=== PATIENT | male | born 1960 | race Caucasian/White ===

== ENCOUNTER 2017-01-19 18:55 | Emergency (ER) | payer OTHER ==
[2017-01-19 19:01] VITALS: BP 143/96
[2017-01-19] MEDS ORDERED: Ketorolac INJ* 60 MG/2 ML VIAL IM ONE (19:18)
--- NOTE | 2017-01-19 19:28 | UC ---
Back Pain HPI - HPI Summary HPI Summary: YESTERDAY WENT RUNNING, THEN AFTERWARDS WAS MOWING LAWN AND GOT OUT TO LIFT SOMETHING FROM UNDER DECK. IMMEDIATELY HAD MUSCLE SPASM IN RIGHT LOWER BACK. TENS UNIT APPLIED TODAY SEEMS TO HELP. NO ABDOMINAL PAIN. NO LOSS OF FUNCTION OF BLADDER OR BOWELS. NO PAIN OR BLOOD WITH URINATION. - History of Current Complaint Chief Complaint: UCBackPain Stated Complaint: BACK PAIN Time Seen by Provider: 01/19/17 19:08 Hx Obtained From: Patient Onset/Duration: Sudden Onset, Lasting Days, Still Present Timing: Intermittent, Lasting Days Severity Initially: Severe Severity Currently: Mild Back Pain: Is Discrete @ - RIGHT LOW BACK Character: Dull, Aching, Spasmodic Aggravating: Movement, Lifting, Bending, Walking Alleviating: Rest, Position Associated Signs And Symptoms: Negative: Tingling, Abdominal Pain, Flank Pain, Bladder Incontinence, Bowel Incontinence, Weight Loss, Pain with Weight Bearing Related History: Similar Episode Dx As - 1 YR AGO - Risk Factors AAA Risk Factors: Negative TAD Risk Factors: Negative Cauda Equina Risk Factors: Negative Epidural Abscess Risk Factors: Negative - Allergies/Home Medications Allergies/Adverse Reactions: Allergies Allergy/AdvReac Type Severity Reaction Status Date / Time No Known Allergies Allergy Verified 01/19/17 19:04 Home Medications: Home Medications Hydrochlorothiazide TAB* [Hydrodiuril TAB*] 25 mg PO DAILY 01/19/17 [History Confirmed 01/19/17] Ibuprofen TAB* [Advil TAB*] 200 mg PO PRN 01/19/17 [History] PMH/Surg Hx/FS Hx/Imm Hx Previously Healthy: Yes - Surgical History Surgical History: Yes Surgery Procedure, Year, and Place: KIDNEY STONES X 3, [facility] 2004. RIGHT WRIST, [facility]. VASECTOMY, [facility] - Family History Known Family History: Positive: Unknown, Cardiac Disease, Hypertension Negative: Diabetes - Social History Occupation: Employed Full-time Lives: With Family Alcohol Use: None Substance Use Type: None Smoking Status (MU): Former Smoker Type: Cigarettes Amount Used/How Often: PACK A DAY X 6 YRS; 20+years ago Have You Smoked in the Last Year: No When Did the Patient Quit Smoking/Using Tobacco: 1983 - Immunization History Most Recent Influenza Vaccination: never Most Recent Tetanus Shot: within last 10 years Most Recent Pneumonia Vaccination: never Review of Systems Constitutional: Negative Skin: Negative Eyes: Negative ENT: Negative Respiratory: Negative Cardiovascular: Negative Gastrointestinal: Negative Genitourinary: Negative Motor: Negative Neurovascular: Negative Musculoskeletal: Arthralgia, Myalgia Neurological: Negative Psychological: Negative All Other Systems Reviewed And Are Negative: Yes Physical Exam Triage Information Reviewed: Yes Appearance: Well-Appearing, No Pain Distress, Well-Nourished Vital Signs: Initial Vital Signs Temp 98.4 F 01/19/17 18:56 Pulse 74 01/19/17 18:56 BP 143/96 01/19/17 18:56 Pulse Ox 96 01/19/17 18:56 Vital Signs Reviewed: Yes Eye Exam: Normal ENT Exam: Normal Dental Exam: Normal Neck exam: Normal Neck: Positive: Supple, Nontender Respiratory Exam: Normal Respiratory: Positive: Chest non-tender, Lungs clear, Normal breath sounds, No respiratory distress Cardiovascular Exam: Normal Cardiovascular: Positive: RRR, No Murmur, Pulses Normal Abdominal Exam: Normal Abdomen Description: Positive: Nontender, No Organomegaly. Negative: CVA Tenderness (R), CVA Tenderness (L) Musculoskeletal: Positive: Strength Intact, ROM Intact, No Edema, Other: - BILATERAL STRAIGHT LEG RAISE NEGATIVE. PAIN WITH PALPATION OF RIGHT GLUTEUS AND RIGHT LUMBAR PARASPINAL MUSCLES WITH PALPABLE SPASM Back Pain Course/Dx - Differential Dx/Diagnosis Differential Diagnosis/HQI/PQRI: Strain, Sprain Provider Diagnoses: LOW BACK PAIN/MUSCLE SPASM Discharge - Discharge Plan Condition: Stable Disposition: HOME Prescriptions: Metaxalone TAB* [Skelaxin TAB*] 800 mg PO TID PRN #15 tab PRN Reason: Spasms Patient Education Materials: Acute Low Back Pain (ED), Muscle Spasm (ED) Referrals: Rafael Vasques MD [Primary Care Provider] - Additional Instructions: PHYSICAL THERAPY REFERRAL: You have been prescribed physical therapy. Treatments may include stretching, exercise, application of heat or cold, and other modalities. After an injury, PT can reduce swelling and pain. In recovery, PT is used to restore mobility and strength. Your specific treatment goals are: Reduction of Swelling (EGS, US, ice as needed) ___X__ Pain Reduction (EGS, US, ice as needed) __X___ TENS Pack Fitting and Instruction Wound Hydrotherapy __X___ Preservation of Mobility ___X__ Judaism of Mobility ___X__ Strength Judaism __X___ Work or Sports Hardening This instruction sheet also serves as your PHYSICAL THERAPY REFERRAL! Please take it with you to the therapist, so he/she will be aware of your diagnosis and treatment plan. You may see the physical therapist of your choice for these treatments, but may wish to check with your insurance to be sure the provider you select is covered. It's important to see the doctor to whom you have been referred for follow up. Images Front/Back of Body, Lg ([place]): 1 - SPASM AND BACK PAIN
== END 2017-01-19 19:54 | disposition home or self-care (01) ==
LOC: UCEAST 18:55
DX: M54.5 Low back pain (principal); M62.830 Muscle spasm of back; X50.0XXA Overexertion from strenuous movement or load, initial encounter; Y93.H2 Activity, gardening and landscaping; Y92.007 Garden or yard of unspecified non-institutional (private) residence as the place of occurrence of the external cause
CPT/HCPCS: 96372; 99212; G0463; J1885

== ENCOUNTER 2017-10-25 13:38 | Emergency (ER) | payer OTHER ==
--- OUTSIDE RECORDS SUMMARY | 2017-10-25 13:47 | XMS REPORT ---
:1960 External Reference #:[id number] Author Organization [facility] Address [address] [place] [address] Phone [phone] Care Team Providers Name Role Phone HCP given Primary Care Physician Unavailable Payers Type Date Identification Numbers Payment Provider Subscriber Commercial Policy Number: [id number] [employer] [facility] Kristy Velazquez Group Name: [employer] [id number] PayID: [id number] [place] [address] Problems Date Description Provider Status Onset: 08/03/2005 Kidney stone Hong Francisco M.D. Active Onset: 09/28/2009 Premature ejaculation Hong Francisco M.D. 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 Uses sunscreen Allergies, Adverse Reactions, Alerts Date Description Reaction Status Severity Comments 06/07/2004 NKDA active Medications Medication Date Status Form Strength Qnty SIG Indications Ordering Provider Doxycycline 10/05 Active Capsules 100mg 2caps 2 caps at S40.262A Silcoff, Hyclate one time Robin Hall Aspirin Adult Low 08/04 Active Tablets 81mg 1 by mouth Unknown Dose DR every day Hydrochlorothiazid 08/04 Active Tablets 25mg take one I10 Unknown e tablet by mouth every morning for high blood pressure Atorvastatin 08/04 Active Tablets 20mg 30tab 1 tablets Sopchak, Calcium s by mouth Delroy, daily for D.O. prevention of heart attack and stroke. Amoxicillin/Clavul 05/14 Hx Tablets 875-125mg 20tab 1 tab po 461.8 Silcoff, anate s bid x 10 Jamie Hall M.D. 03/01 Diphenoxylate/Atro 01/30 Hx Tablets 2.5-0.025 24tab 1-2 tabs up 787.91 Layo mg s to 4x/day Jamie Hall for diarhea M.Mateo 05/14 Paroxetine HCL 11/23 Hx Tablets 20mg 60tab 1 /2 po qd 302.75 s Duoglas Francisco, 05/14 M.DMikala SMZ-TMP DS 05/21 Hx Tablets 800-160mg 14tab 1 tab po 788.1 s bid x 7day Jamie Hall M.D. 05/28 Fluoxetine HCL 05/27 Hx Tablets 20mg 60tab Take 2 302.75 polo s Tablets Rafael - Daily M.DMikala 11/23 Fluoxetine HCL 01/28 Hx Capsules 20mg 60cap 2 po qd 302.75 s Douglas Francisco, 05/27 M.D. Fluoxetine HCL 09/28 Hx Capsules 10mg 90cap 1 po qd 302.75 ty Francisco, 01/28 M.D. Omeprazole 11/07 Hx Capsules 20mg 30cap 1 po qd for 530.[address] crawford acid reflux Jamie Hall M.D. 12/07 Immunizations CPT Code Status Date Vaccine Lot # [id number] Given 09/24/2013 Adacel or Boostrix, TDaP [id number] Given 09/28/2009 Adacel or Boostrix, TDaP [id number] Given 07/07/2006 Td Immunization [id number] Vital Signs Date Vital Result Comment 10/05/2017 BP Systolic 114 mmHg BP Diastolic 82 mmHg Weight 182.00 lb w/shoes 08/13/2017 BP Systolic 102 mmHg BP Diastolic 72 mmHg Height 68.25 inches 5'8.25" Weight 177.00 lb BMI (Body Mass Index) 26.7 kg/m2 08/05/2017 BP Systolic 118 mmHg BP Diastolic 64 mmHg Height 68.25 inches 5'8.25" Weight 176.00 lb BMI (Body Mass Index) 26.6 kg/m2 03/14/2013 BP Systolic 110 mmHg BP Diastolic 82 mmHg Body Temperature 97.8 F Weight 191.00 lb 05/14/2012 BP Systolic 124 mmHg BP Diastolic 94 mmHg Body Temperature 97.5 F Weight 195.00 lb w/shoes-xtra clothing 02/05/2012 BP Systolic 104 mmHg BP Diastolic 59 mmHg Heart Rate 61 /min Weight 187.00 lb Last Menstrual Period 0 01/31/2012 BP Systolic 111 mmHg BP Diastolic 73 mmHg Heart Rate 58 /min Body Temperature 97.8 F Height 69 inches 5'9" Weight 185.00 lb BMI (Body Mass Index) 27.3 kg/m2 05/26/2011 BP Systolic 128 mmHg BP Diastolic 80 mmHg Heart Rate 70 /min 05/21/2011 BP Systolic 132 mmHg BP Diastolic 84 mmHg Heart Rate 674 /min Body Temperature 97.8 F Height 69 inches 5'9" Weight 184.00 lb BMI (Body Mass Index) 27.2 kg/m2 Last Menstrual Period 0 01/14/2011 BP Systolic 114 mmHg BP Diastolic 70 mmHg 01/08/2011 BP Systolic 118 mmHg BP Diastolic 84 mmHg 01/02/2011 BP Systolic 112 mmHg BP Diastolic 80 mmHg Weight 182.00 lb 11/25/2010 BP Systolic 120 mmHg BP Diastolic 82 mmHg Height 69 inches 5'9" Weight 180.00 lb BMI (Body Mass Index) 26.6 kg/m2 Last Menstrual Period 0 05/27/2010 Heart Rate 80 /min wgt at home 166 01/28/2010 BP Systolic 116 mmHg BP Diastolic 84 mmHg Heart Rate 70 /min Weight 166.00 lb 09/28/2009 BP Systolic 102 mmHg BP Diastolic 78 mmHg Heart Rate 70 /min Respiratory Rate 16 /min Height 68.25 inches 5'8.25" Weight 173.00 lb BMI (Body Mass Index) 26.1 kg/m2 Last Menstrual Period 0 03/09/2009 BP Systolic 120 mmHg BP Diastolic 86 mmHg Weight 193.00 lb 11/07/2008 BP Systolic 118 mmHg BP Diastolic 86 mmHg Height 69 inches 5'9" Weight 190.00 lb BMI (Body Mass Index) 28.1 kg/m2 04/17/2008 BP Systolic 122 mmHg BP Diastolic 94 mmHg BP Systolic Recheck 122 mmHg BP Diastolic Recheck 92 mmHg Heart Rate 70 /min Respiratory Rate 16 /min Height 69 inches 5'9" Weight 188.00 lb BMI (Body Mass Index) 27.8 kg/m2 11/26/2007 BP Systolic 110 mmHg BP Diastolic 86 mmHg Height 69 inches 5'9" 07/07/2006 BP Systolic 124 mmHg BP Diastolic 84 mmHg Body Temperature 98.1 F Height 69 inches 5'9" Weight 191.00 lb BMI (Body Mass Index) 28.2 kg/m2 06/07/2004 BP Systolic 120 mmHg BP Diastolic 80 mmHg Height 69 inches 5'9" Weight 198.00 lb BMI (Body Mass Index) 29.2 kg/m2 Results Test Date Test Result H/L Range Note Comp Metabolic Panel 08/12/2017 Sodium 138 mmol/L 133-145 Potassium 4.3 mmol/L 3.5-5.0 Chloride 103 mmol/L 101-111 Co2 Carbon Dioxide 31 mmol/L 22-32 Anion Gap 4 mmol/L 2-11 Glucose 86 mg/dL 70-100 Blood Urea Nitrogen 22 mg/dL 6-24 Creatinine 0.91 mg/dL 0.67-1.17 BUN/Creatinine Ratio 24.2 High 8-20 Calcium 9.4 mg/dL 8.6-10.3 Total Protein 6.5 g/dL 6.4-8.9 Albumin 4.1 g/dL 3.2-5.2 Globulin 2.4 g/dL 2-4 Albumin/Globulin Ratio 1.7 1-3 Total Bilirubin 0.60 mg/dL 0.2-1.0 Alkaline Phosphatase 36 U/L 34-104 Alt 16 U/L 7-52 Ast 17 U/L 13-39 Egfr Non- 85.9 >60 Egfr 110.4 >60 1 Lipid Profile (Trig/Chol/HDL) 08/12/2017 Triglycerides 49 mg/dL 2 Cholesterol 184 mg/dL 3 HDL Cholesterol 52.6 mg/dL 4 LDL Cholesterol 122 mg/dL 5 Laboratory test finding 08/12/2017 Creatine Kinase(CK) 137 U/L 10-223 6 Culture Urine Inhouse 08/05/2017 Colonies negative Urine Micro Inhouse 08/05/2017 Ua WBC 2-3 Ua Specific Wilburn 1.020 Ua PH 6.0 Laboratory test finding 10/03/2016 Potassium 3.9 mmol/L 3.5-5.0 Basic Metabolic Panel 08/25/2016 Sodium 140 mmol/L 133-145 Potassium 4.4 mmol/L 3.5-5.0 Chloride 107 mmol/L 101-111 Co2 Carbon Dioxide 30 mmol/L 22-32 Anion Gap 3 mmol/L 2-11 Glucose 97 mg/dL 70-100 Blood Urea Nitrogen 16 mg/dL 6-24 Creatinine 0.91 mg/dL 0.67-1.17 BUN/Creatinine Ratio 17.6 8-20 Calcium 9.5 mg/dL 8.6-10.3 Egfr Non- 85.9 >60 Egfr 110.4 >60 7 Laboratory test finding 08/25/2016 PSA Screening 2.425 ng/mL 0-4.0 8 Laboratory test finding 06/18/2016 B-Type Natriuretic Peptide 14 pg/mL 9 BNP Lactic Acid 0.7 mmol/L 0.5-2.0 10 CBC Auto Diff 06/18/2016 White Blood Count 5.7 10^3/uL 3.5-10.8 Red Blood Count 4.74 10^6/uL 4.0-5.4 Hemoglobin 14.8 g/dL 14.0-18.0 Hematocrit 44 % 42-52 Mean Corpuscular Volume 93 fL 80-94 Mean Corpuscular Hemoglobin 31 pg 27-31 Mean Corpuscular HGB Conc 34 g/dL 31-36 Red Cell Distribution Width 14 % 10.5-15 Platelet Count 176 10^3/uL 150-450 Mean Platelet Volume 9 um3 7.4-10.4 Abs Neutrophils 3.3 10^3/uL 1.5-7.7 Abs Lymphocytes 1.9 10^3/uL 1.0-4.8 Abs Monocytes 0.4 10^3/uL 0-0.8 Abs Eosinophils 0.1 10^3/uL 0-0.6 Abs Basophils 0 10^3/uL 0-0.2 Abs Nucleated RBC 0 10^3/uL Granulocyte % 57.4 % 38-83 Lymphocyte % 33.3 % 25-47 Monocyte % 6.5 % 1-9 Eosinophil % 2.1 % 0-6 Basophil % 0.7 % 0-2 Nucleated Red Blood Cells % 0 Comp Metabolic Panel 06/18/2016 Sodium 138 mmol/L 133-145 Potassium 3.7 mmol/L 3.5-5.0 Chloride 105 mmol/L 101-111 Co2 Carbon Dioxide 29 mmol/L 22-32 Anion Gap 4 mmol/L 2-11 Glucose 91 mg/dL 70-100 Blood Urea Nitrogen 19 mg/dL 6-24 Creatinine 1.00 mg/dL 0.67-1.17 BUN/Creatinine Ratio 19.0 8-20 Calcium 8.8 mg/dL 8.6-10.3 Total Protein 6.6 g/dL 6.4-8.9 Albumin 4.1 g/dL 3.2-5.2 Globulin 2.5 g/dL 2-4 Albumin/Globulin Ratio 1.6 1-3 Total Bilirubin 0.50 mg/dL 0.2-1.0 Alkaline Phosphatase 38 U/L 34-104 Alt 29 U/L 7-52 Ast 23 U/L 13-39 Egfr Non- 77.3 >60 Egfr 99.4 >60 11 Laboratory test finding 06/18/2016 Troponin-I (TnI) 0.00 ng/mL <0.04 12 TSH (Thyroid Stim Horm) 1.42 mcIU/mL 0.34-5.60 Inr/Protime 06/18/2016 Inr 0.96 0.89-1.11 Comp Metabolic Panel 12/08/2015 Sodium 137 mmol/L 133-145 Potassium 3.9 mmol/L 3.5-5.0 Chloride 105 mmol/L 101-111 Co2 Carbon Dioxide 26 mmol/L 22-32 Anion Gap 6 mmol/L 2-11 Glucose 97 mg/dL 70-100 Blood Urea Nitrogen 27 mg/dL High 6-24 Creatinine 0.90 mg/dL 0.67-1.17 BUN/Creatinine Ratio 30.0 High 8-20 Calcium 8.7 mg/dL 8.6-10.3 Total Protein 6.2 g/dL Low 6.4-8.9 Albumin 3.9 g/dL 3.2-5.2 Globulin 2.3 g/dL 2-4 Albumin/Globulin Ratio 1.7 1-3 Total Bilirubin 0.40 mg/dL 0.2-1.0 Alkaline Phosphatase 58 U/L 34-104 Alt 34 U/L 7-52 Ast 28 U/L 13-39 Egfr Non- 87.3 >60 Egfr 112.3 >60 13 CBC Auto Diff 12/08/2015 White Blood Count 5.9 10^3/uL 3.5-10.8 Red Blood Count 4.39 10^6/uL 4.0-5.4 Hemoglobin 13.5 g/dL Low 14.0-18.0 Hematocrit 40 % Low 42-52 Mean Corpuscular Volume 91 fL 80-94 Mean Corpuscular Hemoglobin 31 pg 27-31 Mean Corpuscular HGB Conc 34 g/dL 31-36 Red Cell Distribution Width 13 % 10.5-15 Platelet Count 174 10^3/uL 150-450 Mean Platelet Volume 9 um3 7.4-10.4 Abs Neutrophils 3.2 10^3/uL 1.5-7.7 Abs Lymphocytes 2.0 10^3/uL 1.0-4.8 Abs Monocytes 0.4 10^3/uL 0-0.8 Abs Eosinophils 0.2 10^3/uL 0-0.6 Abs Basophils 0.1 10^3/uL 0-0.2 Abs Nucleated RBC 0 10^3/uL Granulocyte % 55.2 % 38-83 Lymphocyte % 34.0 % 25-47 Monocyte % 7.2 % 1-9 Eosinophil % 2.7 % 0-6 Basophil % 0.9 % 0-2 Nucleated Red Blood Cells % 0 CBC Auto Diff 08/23/2015 White Blood Count 4.8 10^3/uL 3.5-10.8 Red Blood Count 4.34 10^6/uL 4.0-5.4 Hemoglobin 13.4 g/dL Low 14.0-18.0 Hematocrit 41 % Low 42-52 Mean Corpuscular Volume 94 fL 80-94 Mean Corpuscular Hemoglobin 31 pg 27-31 Mean Corpuscular HGB Conc 33 g/dL 31-36 Red Cell Distribution Width 14 % 10.5-15 Platelet Count 167 10^3/uL 150-450 Mean Platelet Volume 9 um3 7.4-10.4 Abs Neutrophils 3.0 10^3/uL 1.5-7.7 Abs Lymphocytes 1.4 10^3/uL 1.0-4.8 Abs Monocytes 0.3 10^3/uL 0-0.8 Abs Eosinophils 0.1 10^3/uL 0-0.6 Abs Basophils 0 10^3/uL 0-0.2 Abs Nucleated RBC 0 10^3/uL Granulocyte % 61.8 % 38-83 Lymphocyte % 28.8 % 25-47 Monocyte % 6.6 % 1-9 Eosinophil % 2.1 % 0-6 Basophil % 0.7 % 0-2 Nucleated Red Blood Cells % 0 Comp Metabolic Panel 08/23/2015 Sodium 139 mmol/L 133-145 Potassium 3.8 mmol/L 3.5-5.0 Chloride 106 mmol/L 101-111 Co2 Carbon Dioxide 28 mmol/L 22-32 Anion Gap 5 mmol/L 2-11 Glucose 97 mg/dL 70-100 Blood Urea Nitrogen 16 mg/dL 6-24 Creatinine 0.84 mg/dL 0.67-1.17 BUN/Creatinine Ratio 19.0 8-20 Calcium 8.8 mg/dL 8.6-10.3 Total Protein 5.9 g/dL Low 6.4-8.9 Albumin 3.9 g/dL 3.2-5.2 Globulin 2.0 g/dL 2-4 Albumin/Globulin Ratio 2.0 1-3 Total Bilirubin 0.50 mg/dL 0.2-1.0 Alkaline Phosphatase 50 U/L 34-104 Alt 35 U/L 7-52 Ast 23 U/L 13-39 Egfr Non- 94.9 >60 Egfr 122.0 >60 14 Laboratory test finding 08/23/2015 Troponin-I (TnI) 0.01 ng/mL <0.03 15 Laboratory test finding 05/31/2015 Troponin-I (TnI) 0.00 ng/mL <0.03 16 CBC Auto Diff 05/31/2015 White Blood Count 5.9 10^3/uL 3.5-10.8 Red Blood Count 4.84 10^6/uL 4.0-5.4 Hemoglobin 15.1 g/dL 14.0-18.0 Hematocrit 45 % 42-52 Mean Corpuscular Volume 92 fL 80-94 Mean Corpuscular Hemoglobin 31 pg 27-31 Mean Corpuscular HGB Conc 34 g/dL 31-36 Red Cell Distribution Width 13 % 10.5-15 Platelet Count 217 10^3/uL 150-450 Mean Platelet Volume 8 um3 7.4-10.4 Abs Neutrophils 3.8 10^3/uL 1.5-7.7 Abs Lymphocytes 1.5 10^3/uL 1.0-4.8 Abs Monocytes 0.4 10^3/uL 0-0.8 Abs Eosinophils 0.1 10^3/uL 0-0.6 Abs Basophils 0.1 10^3/uL 0-0.2 Abs Nucleated RBC 0 10^3/uL Granulocyte % 64.7 % 38-83 Lymphocyte % 24.8 % Low 25-47 Monocyte % 7.3 % 1-9 Eosinophil % 2.3 % 0-6 Basophil % 0.9 % 0-2 Nucleated Red Blood Cells % 0 Laboratory test finding 05/31/2015 Lactic Acid 1.0 mmol/L 0.5-2.2 Troponin-I (TnI) 0.00 ng/mL <0.03 17 Comp Metabolic Panel 05/31/2015 Sodium 143 mmol/L 133-145 Potassium 3.8 mmol/L 3.5-5.0 Chloride 108 mmol/L 101-111 Co2 Carbon Dioxide 27 mmol/L 22-32 Anion Gap 8 mmol/L 2-11 Glucose 85 mg/dL 70-100 Blood Urea Nitrogen 18 mg/dL 6-24 Creatinine 0.99 mg/dL 0.67-1.17 BUN/Creatinine Ratio 18.2 8-20 Calcium 9.5 mg/dL 8.6-10.3 Total Protein 7.1 g/dL 6.4-8.9 Albumin 4.3 g/dL 3.2-5.2 Globulin 2.8 g/dL 2-4 Albumin/Globulin Ratio 1.5 1-3 Total Bilirubin 0.50 mg/dL 0.2-1.0 Alkaline Phosphatase 56 U/L 34-104 Alt 29 U/L 7-52 Ast 22 U/L 13-39 Egfr Non- 78.5 >60 Egfr 100.9 >60 18 Laboratory test finding 05/11/2015 Troponin-I (TnI) 1.31 ng/mL High < 0.03 19 Lactic Acid 0.7 mmol/L 0.5-2.2 20 Comp Metabolic Panel 05/11/2015 Sodium 136 mmol/L 133-145 Potassium 3.9 mmol/L 3.5-5.0 Chloride 102 mmol/L 101-111 Co2 Carbon Dioxide 28 mmol/L 22-32 Anion Gap 6 mmol/L 2-11 Glucose 96 mg/dL 70-100 Blood Urea Nitrogen 17 mg/dL 6-24 Creatinine 0.90 mg/dL 0.67-1.17 BUN/Creatinine Ratio 18.9 8-20 Calcium 9.4 mg/dL 8.6-10.3 Total Protein 6.3 g/dL Low 6.4-8.9 Albumin 4.1 g/dL 3.2-5.2 Globulin 2.2 g/dL 2-4 Albumin/Globulin Ratio 1.9 1-3 Total Bilirubin 0.60 mg/dL 0.2-1.0 Alkaline Phosphatase 36 U/L 34-104 Alt 20 U/L 7-52 Ast 35 U/L 13-39 Egfr Non- 87.6 >60 Egfr 112.7 >60 21 CBC Auto Diff 05/11/2015 White Blood Count 5.9 10^3/uL 4.8-10.8 Red Blood Count 4.66 10^6/uL 4.0-5.4 Hemoglobin 14.3 g/dL 14.0-18.0 Hematocrit 44 % 42-52 Mean Corpuscular Volume 94 fL 80-94 Mean Corpuscular Hemoglobin 31 pg 27-31 Mean Corpuscular HGB Conc 33 g/dL 31-36 Red Cell Distribution Width 13 % 10.5-15 Platelet Count 196 10^3/uL 150-450 Mean Platelet Volume 10 um3 7.4-10.4 Abs Neutrophils 3.9 10^3/uL 1.5-7.7 Abs Lymphocytes 1.4 10^3/uL 1.0-4.8 Abs Monocytes 0.4 10^3/uL 0-0.8 Abs Eosinophils 0.1 10^3/uL 0-0.6 Abs Basophils 0 10^3/uL 0-0.2 Abs Nucleated RBC 0.01 10^3/uL Granulocyte % 66.9 % 38-83 Lymphocyte % 24.2 % Low 25-47 Monocyte % 6.7 % 1-9 Eosinophil % 1.5 % 0-6 Basophil % 0.7 % 0-2 Nucleated Red Blood Cells % 0.1 Laboratory test finding 05/11/2015 Troponin-I (TnI) 2.73 ng/mL High < 0.03 22 Laboratory test finding 05/07/2015 Troponin-I (TnI) 0.02 ng/mL <0.03 23 CBC Auto Diff 05/07/2015 White Blood Count 5.5 10^3/uL 4.8-10.8 Red Blood Count 4.43 10^6/uL 4.0-5.4 Hemoglobin 13.8 g/dL Low 14.0-18.0 Hematocrit 42 % 42-52 Mean Corpuscular Volume 95 fL High 80-94 Mean Corpuscular Hemoglobin 31 pg 27-31 Mean Corpuscular HGB Conc 33 g/dL 31-36 Red Cell Distribution Width 13 % 10.5-15 Platelet Count 165 10^3/uL 150-450 Mean Platelet Volume 9 um3 7.4-10.4 Abs Neutrophils 3.3 10^3/uL 1.5-7.7 Abs Lymphocytes 1.7 10^3/uL 1.0-4.8 Abs Monocytes 0.4 10^3/uL 0-0.8 Abs Eosinophils 0.1 10^3/uL 0-0.6 Abs Basophils 0 10^3/uL 0-0.2 Abs Nucleated RBC 0.01 10^3/uL Granulocyte % 59.0 % 38-83 Lymphocyte % 31.4 % 25-47 Monocyte % 6.4 % 1-9 Eosinophil % 2.6 % 0-6 Basophil % 0.6 % 0-2 Nucleated Red Blood Cells % 0.1 Comp Metabolic Panel 05/07/2015 Sodium 139 mmol/L 133-145 Potassium 3.8 mmol/L 3.5-5.0 Chloride 105 mmol/L 101-111 Co2 Carbon Dioxide 27 mmol/L 22-32 Anion Gap 7 mmol/L 2-11 Glucose 81 mg/dL 70-100 Blood Urea Nitrogen 25 mg/dL High 6-24 Creatinine 1.02 mg/dL 0.67-1.17 BUN/Creatinine Ratio 24.5 High 8-20 Calcium 9.0 mg/dL 8.6-10.3 Total Protein 6.3 g/dL Low 6.4-8.9 Albumin 3.9 g/dL 3.2-5.2 Globulin 2.4 g/dL 2-4 Albumin/Globulin Ratio 1.6 1-3 Total Bilirubin 0.40 mg/dL 0.2-1.0 Alkaline Phosphatase 50 U/L 34-104 Alt 21 U/L 7-52 Ast 21 U/L 13-39 Egfr Non- 75.8 >60 Egfr 97.5 >60 24 Laboratory test finding 05/07/2015 Lipase 28 U/L 11.0-82.0 Creatine Kinase(CK) 182 U/L 10-223 Troponin-I (TnI) 0.01 ng/mL <0.03 25 CKMB 05/07/2015 CKMB ng/mL 3.8 ng/mL 0.6-6.3 Laboratory test finding 05/07/2015 B-Type Natriuretic Peptide 21 pg/mL 26 BNP Basic Metabolic Panel 11/20/2014 Sodium 138 mmol/L 133-145 Potassium 4.2 mmol/L 3.5-5.0 Chloride 105 mmol/L 101-111 Co2 Carbon Dioxide 31 mmol/L 22-32 Anion Gap 2 mmol/L 2-11 Glucose 98 mg/dL 70-100 Blood Urea Nitrogen 15 mg/dL 6-24 Creatinine 0.97 mg/dL 0.67-1.17 BUN/Creatinine Ratio 15.5 8-20 Calcium 9.3 mg/dL 8.6-10.3 Egfr Non- 80.4 >60 Egfr 103.3 >60 27 Laboratory test finding 11/20/2014 PSA Diagnostic 1.730 ng/mL 0-4.0 28 Basic Metabolic Panel 07/29/2013 Sodium 138 mmol/L 133-145 Potassium 3.8 mmol/L 3.5-5.0 Chloride 101 mmol/L 101-111 Co2 Carbon Dioxide 30.0 mmol/L 22-32 Anion Gap 7.0 mmol/L 2-11 Glucose 99 mg/dL 70-100 Blood Urea Nitrogen 12 mg/dL 6-24 Creatinine 1.00 mg/dL 0.50-1.40 BUN/Creatinine Ratio 12.0 8-20 Calcium 9.1 mg/dL 8.1-9.9 Egfr Non- 78.2 >60 Egfr 100.5 >60 29 Laboratory test finding 07/29/2013 PSA Diagnostic 1.294 ng/mL 0-4.0 30 Culture Urine Inhouse 03/14/2013 Colonies no growth Urine Micro Inhouse 03/14/2013 Ua WBC - Ua RBC - Ua Casts - Ua Epi - Ua Other - Ua Glucose - Ua Bilirubin - Ua Ketones - Ua Specific Wilburn 1.010 Ua Blood - Ua PH 6.5 Ua Protein - Ua Urobilinogen - Ua Nitrite - Ua Leukocytes - Laboratory test finding 02/02/2012 Erythrocyte Sed Rate 9 MM/HR 0-20 31 Comp Metabolic Panel 02/02/2012 Sodium 139 mmol/L 135-145 31 Potassium 4.3 mmol/L 3.5-5.0 31 Chloride 105 mmol/L 101-111 31 Co2 (Carbon Dioxide) 29.0 mmol/L 22-32 31 Anion Gap 5.0 mmol/L 2-11 31, 32 Glucose 74 mg/dL 70-100 31 BUN 16 mg/dL 6-24 31 Creatinine 0.9 mg/dL 0.50-1.40 31 One Over Creatinine 1.11 31 BUN/Creatinine Ratio 17.8 8-20 31 Calcium 9.0 mg/dL 8.1-9.9 31 Total Protein 6.5 GM/DL 6.2-8.1 31 Albumin 3.8 GM/DL 3.6-5.4 31 Globulin 2.7 GM/DL 2-4 31 Albumin/Globulin Ratio 1.4 1-3 31 Bilirubin Total 0.7 mg/dL 0.4-1.5 31, 33 Alkaline Phosphatase 56 U/L 39-117 31 Alt (SGPT) 25 U/L 17-63 31 Ast (Sgot) 20 U/L 12-42 31 eGFR Non- 88.6 > 60 31 eGFR 114.0 > 60 31, 34 CBC Auto Diff 02/02/2012 White Blood Count 4.2 CUMM Low 4.8-10.8 31 Red Cell Count 4.37 CUMM Low 4.6-6.2 31 Hemoglobin 14.3 g/dL 14.0-18.0 31 Hematocrit 41 % Low 42-52 31 Mean Corpuscular Volume 93 um3 80-94 31 Mean Corpuscular Hemoglob 33 pg High 27-31 31 Mean Corpuscular HGB Cone 35 g/dL 32-36 31 Redcell Distribution WDTH 13 % 10.5-15 31 Platelet Count 199 CUMM 150-450 31 Mean Platelet Volume 8.8 um3 7.4-10.4 31 Gran % 49.5 % 38-83 31 Lymph % 37.0 % 20-45 31 Mononuclear % 10.1 % High 1-9 31 Eosinophil % 2.8 % 0-6 31 Basophil % 0.6 % 0-2 31 Abs Lymphs 1.6 1.0-4.8 31 Abs Mononuclear 0.4 0-0.8 31 Absolute Neutrophil Count 2.1 1.5-7.7 31 Abs Eosinophils 0.1 0-0.6 31 Abs Basophils 0 0-0.2 31 Laboratory test 02/02/2012 Stool Culture 31, 35 finding <SEE NOTE> Stool For Blood 02/02/2012 Stool For Blood NEGATIVE Negative 31 Stool Color BROWN 31 Stool Form NONFORMED 31 Stool Consistency SOFT 31 Urine Micro Inhouse 05/21/2011 Ua WBC 4-6 Ua RBC 0-3 Ua Casts - Ua Epi - Ua Other - Ua Glucose - Ua Bilirubin - Ua Ketones - Ua Specific Wilburn 1.015 Ua Blood lrg Ua PH 6.0 Ua Protein - Ua Urobilinogen - Ua Nitrite - Ua Leukocytes tr Urinalysis W/Microscopic 03/01/2011 Ua Color YELLOW Yellow Appearance-Urine CLEAR Clear Specific Wilburn-Ur 1.022 1.010-1.030 Esterase-Urine NEGATIVE Negative Nitrite NEGATIVE Negative Gxetvzdkehii-Th-TOC NEGATIVE Negative Protein-Urine NEGATIVE Negative PH-Urine 6.0 5-9 Blood-Urine 3+ Negative Ketones-Urine NEGATIVE Negative Bilirubin-Ur NEGATIVE Negative Glucose-Urine NEGATIVE Negative RBC-Urine 80-100 0-2 Epith Cells-Ur FEW None Urine Culture & 03/01/2011 Urine Culture NG 36, 37 Sensitivi Sensitivi Basic Metabolic Panel 03/01/2011 Sodium 133 mmol/L Low 135-145 Potassium 3.8 mmol/L 3.5-5.0 Chloride 100 mmol/L Low 101-111 Co2 (Carbon Dioxide) 28.0 mmol/L 22-32 Anion Gap 5.0 mmol/L 2-11 38 Glucose 94 mg/dL 70-100 BUN 19 mg/dL 6-24 Creatinine 0.9 mg/dL 0.50-1.40 One Over Creatinine 1.11 BUN/Creatinine Ratio 21.1 High 8-20 Calcium 8.8 mg/dL 8.1-9.9 eGFR Non- 89.0 > 60 eGFR 114.4 > 60 39 CBC Auto Diff 03/01/2011 White Blood Count 6.2 CUMM 4.8-10.8 Red Cell Count 4.13 CUMM Low 4.6-6.2 Hemoglobin 13.6 g/dL Low 14.0-18.0 Hematocrit 39 % Low 42-52 Mean Corpuscular Volume 93 um3 80-94 Mean Corpuscular Hemoglob 33 pg High 27-31 Mean Corpuscular HGB Cone 35 g/dL 32-36 Redcell Distribution WDTH 12 % 10.5-15 Platelet Count 198 CUMM 150-450 Mean Platelet Volume 8.6 um3 7.4-10.4 Gran % 49.1 % 38-83 Lymph % 34.4 % 25-47 Mononuclear % 9.4 % High 1-9 Eosinophil % 6.1 % High 0-6 Basophil % 1.0 % 0-2 Abs Lymphs 2.1 1.0-4.8 Abs Mononuclear 0.6 0-0.8 Absolute Neutrophil Count 3.0 1.5-7.7 Abs Eosinophils 0.4 0-0.6 Abs Basophils 0.1 0-0.2 Comp Metabolic Panel 01/13/2011 Sodium 138 mmol/L 135-145 Potassium 4.5 mmol/L 3.5-5.0 Chloride 103 mmol/L 101-111 Co2 (Carbon Dioxide) 30.0 mmol/L 22-32 Anion Gap 5.0 mmol/L 2-11 40 Glucose 94 mg/dL 70-100 BUN 13 mg/dL 6-24 Creatinine 0.80 mg/dL 0.50-1.40 One Over Creatinine 1.20 BUN/Creatinine Ratio 16.3 8-20 Calcium 8.9 mg/dL 8.1-9.9 Total Protein 6.3 GM/DL 6.2-8.1 Albumin 3.8 GM/DL 3.6-5.4 Globulin 2.5 GM/DL 2-4 Albumin/Globulin Ratio 1.5 1-3 Bilirubin Total 0.7 mg/dL 0.4-1.5 41 Alkaline Phosphatase 43 U/L 39-117 Alt (SGPT) 20 U/L 17-63 Ast (Sgot) 22 U/L 12-42 eGFR Non- 101.9 > 60 eGFR 131.1 > 60 42 CBC Auto Diff 01/13/2011 White Blood Count 5.1 CUMM 4.8-10.8 Red Cell Count 4.10 CUMM Low 4.6-6.2 Hemoglobin 13.2 g/dL Low 14.0-18.0 Hematocrit 39 % Low 42-52 Mean Corpuscular Volume 96 um3 High 80-94 Mean Corpuscular Hemoglob 32 pg High 27-31 Mean Corpuscular HGB Cone 34 g/dL 32-36 Redcell Distribution WDTH 13 % 10.5-15 Platelet Count 214 CUMM 150-450 Mean Platelet Volume 8.4 um3 7.4-10.4 Gran % 60.4 % 38-83 Lymph % 28.6 % 25-47 Mononuclear % 7.0 % 1-9 Eosinophil % 3.2 % 0-6 Basophil % 0.8 % 0-2 Abs Lymphs 1.5 1.0-4.8 Abs Mononuclear 0.4 0-0.8 Absolute Neutrophil Count 3.1 1.5-7.7 Abs Eosinophils 0.2 0-0.6 Abs Basophils 0 0-0.2 Urine Micro Inhouse 01/02/2011 Ua WBC - Ua RBC - Ua Casts - Ua Epi - Ua Other - Ua Glucose - Ua Bilirubin - Ua Ketones - Ua Specific Wilburn 1.010 Ua Blood tr Ua PH 6.0 Ua Protein - Ua Urobilinogen - Ua Nitrite - Ua Leukocytes 1+ Laboratory test finding 11/25/2010 Hemoglobin 16.0 CBC With Electronic Diff 05/03/2010 White Blood Count 4.6 CUMM Low 4.8- 10.8 Red Cell Count 4.58 CUMM Low 4.6-6.2 Hemoglobin 14.8 g/dL 14.0-18.0 Hematocrit 42 % 42-52 Mean Corpuscular Volume 92 um3 80-94 Mean Corpuscular Hemoglob 32 pg High 27-31 Mean Corpuscular HGB Cone 35 g/dL 32-36 Redcell Distribution WDTH 13 % 10.5-15 Platelet Count 219 CUMM 150-450 Mean Platelet Volume 7.3 um3 Low 7.4-10.4 Gran % 58.3 % 38-83 Lymph % 31.0 % 25-47 Mononuclear % 7.0 % 1-9 Eosinophil % 2.9 % 0-6 Basophil % 0.8 % 0-2 Abs Lymphs 1.4 1.0-4.8 Abs Mononuclear 0.3 0-0.8 Absolute Neutrophil Count 2.7 1.5-7.7 Abs Eosinophils 0.1 0-0.6 Abs Basophils 0 0-0.2 Comp Metabolic Panel 05/03/2010 Sodium 138 mmol/L 135-145 Potassium 4.1 mmol/L 3.5-5.0 Chloride 102 mmol/L 101-111 Co2 (Carbon Dioxide) 31.0 mmol/L 22-32 Anion Gap 5.0 mmol/L 2-11 43 Glucose 96 mg/dL 70-100 44 BUN 14 mg/dL 6-24 Creatinine 0.90 mg/dL 0.50-1.40 One Over Creatinine 1.10 BUN/Creatinine Ratio 15.6 8-20 Calcium 9.2 mg/dL 8.1-9.9 Total Protein 6.6 GM/DL 6.2-8.1 Albumin 4.2 GM/DL 3.6-5.4 Globulin 2.4 GM/DL 2-4 Albumin/Globulin Ratio 1.8 1-3 Bilirubin Total 1.0 mg/dL 0.4-1.5 45 Alkaline Phosphatase 47 U/L 39-117 Alt (SGPT) 21 U/L 17-63 Ast (Sgot) 19 U/L 12-42 eGFR Non- 94.9 > 60 eGFR 114.9 > 60 46 Urine Micro Inhouse 09/28/2009 Ua WBC - Ua RBC - Ua Casts - Ua Epi - Ua Other - Ua Glucose - Ua Bilirubin - Ua Ketones - Ua Specific Wilburn 1.005 Ua Blood - Ua PH 7.0 Ua Protein - Ua Urobilinogen - Ua Nitrite - Ua Leukocytes - CBC With Electronic Diff 08/29/2009 White Blood Count 4.4 CUMM Low 4.8- 10.8 Red Cell Count 4.74 CUMM 4.6-6.2 Hemoglobin 15.2 g/dL 14.0-18.0 Hematocrit 44 % 42-52 Mean Corpuscular Volume 92 um3 80-94 Mean Corpuscular Hemoglob 32 pg High 27-31 Mean Corpuscular HGB Cone 35 g/dL 32-36 Redcell Distribution WDTH 12 % 10.5-15 Platelet Count 184 CUMM 150-450 Mean Platelet Volume 8.4 um3 7.4-10.4 Gran % 57.5 % 38-83 Lymph % 32.9 % 25-47 Mononuclear % 6.2 % 1-9 Eosinophil % 2.2 % 0-6 Basophil % 1.2 % 0-2 Abs Lymphs 1.4 1.0-4.8 Abs Mononuclear 0.3 0-0.8 Absolute Neutrophil Count 2.4 1.5-7.7 Abs Eosinophils 0.1 0-0.6 Abs Basophils 0.1 0-0.2 Comp Metabolic Panel 08/29/2009 Sodium 138 mmol/L 135-145 Potassium 4.4 mmol/L 3.5-5.0 Chloride 103 mmol/L 101-111 Co2 (Carbon Dioxide) 31.0 mmol/L 22-32 Anion Gap 4.0 mmol/L 2-11 47 Glucose 86 mg/dL 70-100 48 BUN 18 mg/dL 6-24 Creatinine 0.83 mg/dL 0.50-1.40 One Over Creatinine 1.20 BUN/Creatinine Ratio 21.7 High 8-20 Calcium 9.1 mg/dL 8.1-9.9 49 Total Protein 6.6 GM/DL 6.2-8.1 Albumin 4.2 GM/DL 3.6-5.4 Globulin 2.4 GM/DL 2-4 Albumin/Globulin Ratio 1.8 1-3 Bilirubin Total 0.9 mg/dL 0.4-1.5 50 Alkaline Phosphatase 41 U/L 39-117 Alt (SGPT) 23 U/L 17-63 Ast (Sgot) 21 U/L 12-42 eGFR Non- 104.2 > 60 eGFR 126.1 > 60 51 Lipid Profile (Trig/Chol/HDL) 08/29/2009 Triglyceride 61 mg/dL 40-200 Cholesterol 206 mg/dL High Less Than 200 52 High Density Lipoprotein 46 mg/dL 40-60 53 Cholesterol/HDL Ratio 4.48 AVERAGE 1-4.97 Low Density Lipoprotein 148 mg/dL High Less Than 100 54 Laboratory test finding 08/29/2009 PSA,Diagnostic 0.96 NG/ML 0-4 55 Laboratory test finding 11/26/2007 Surgical Pathology verrucou vulg 56 Laboratory test finding 03/29/2007 PSA Screening 0.65 NG/ML 0-4 Laboratory test finding 07/08/2006 Surgical Pathology epid inclu cyst 57 Culture Urine Inhouse 06/10/2004 Presumptive NEG Pseudomonas NEG Staphylococcus NEG Enterococcus NEG Yeast NEG E Coli NEG Klebsiella NEG Proteus NEG Colonies NEG 1 Because ethnic data is not always readily available, this report includes an eGFR for both -Americans and non- Americans. The National Kidney Disease Education Program (NKDEP) does not endorse the use of the MDRD equation for patients that are not between the ages of 18 and 70, are , have extremes of body size, muscle mass, or nutritional status, or are non- or non-. According to the National Kidney Foundation, irrespective of diagnosis, the stage of the disease is based on the level of kidney function: Stage Description GFR(mL/min/1.73 m(2)) 1 Kidney damage with normal or decreased GFR 90 2 Kidney damage with mild decrease in GFR 60-89 3 Moderate decrease in GFR 30-59 4 Severe decrease in GFR 15-29 5 Kidney failure <15 (or dialysis) 2 Desirable: <150 Borderline High: 150-199 High: 200-499 Very High: >500 3 Desirable: <200 Borderline High: 200-239 High: >239 4 Low: <40 Desirable: 40-60 High: >60 5 Desirable: <100 Near Optimal: 100-129 Borderline High: 130-159 High: 160-189 Very High: >189 6 fasting 7 Because ethnic data is not always readily available, this report includes an eGFR for both -Americans and non- Americans. The National Kidney Disease Education Program (NKDEP) does not endorse the use of the MDRD equation for patients that are not between the ages of 18 and 70, are , have extremes of body size, muscle mass, or nutritional status, or are non- or non-. According to the National Kidney Foundation, irrespective of diagnosis, the stage of the disease is based on the level of kidney function: Stage Description GFR(mL/min/1.73 m(2)) 1 Kidney damage with normal or decreased GFR 90 2 Kidney damage with mild decrease in GFR 60-89 3 Moderate decrease in GFR 30-59 4 Severe decrease in GFR 15-29 5 Kidney failure <15 (or dialysis) 8 Serum levels of PSA measured using the [employer] [place] DXI Hybritech immunoassay should not be interpreted as absolute evidence of the presence or absence of disease. The PSA value should be used in conjunction with other pertinent clinical diagnostic procedures. The values obtained with different assay methods or kits cannot be used interchangeably. 9 >100 to <200 pg/mL: likely compensated congestive heart failure (CHF) 200 to 400 pg/mL: likely moderate CHF >400 pg/mL: likely moderate to severe CHF 10 [facility] Severe Sepsis and Septic Shock Management Bundle Measure requires all lactic acids initially measuring >2.0 mmol/L be repeated. 11 Because ethnic data is not always readily available, this report includes an eGFR for both -Americans and non- Americans. The National Kidney Disease Education Program (NKDEP) does not endorse the use of the MDRD equation for patients that are not between the ages of 18 and 70, are , have extremes of body size, muscle mass, or nutritional status, or are non- or non-. According to the National Kidney Foundation, irrespective of diagnosis, the stage of the disease is based on the level of kidney function: Stage Description GFR(mL/min/1.73 m(2)) 1 Kidney damage with normal or decreased GFR 90 2 Kidney damage with mild decrease in GFR 60-89 3 Moderate decrease in GFR 30-59 4 Severe decrease in GFR 15-29 5 Kidney failure <15 (or dialysis) 12 99th percentile=0.04 ng/mL Troponin results at [facility] are not interchangeable. 13 Because ethnic data is not always readily available, this report includes an eGFR for both -Americans and non- Americans. The National Kidney Disease Education Program (NKDEP) does not endorse the use of the MDRD equation for patients that are not between the ages of 18 and 70, are , have extremes of body size, muscle mass, or nutritional status, or are non- or non-. According to the National Kidney Foundation, irrespective of diagnosis, the stage of the disease is based on the level of kidney function: Stage Description GFR(mL/min/1.73 m(2)) 1 Kidney damage with normal or decreased GFR 90 2 Kidney damage with mild decrease in GFR 60-89 3 Moderate decrease in GFR 30-59 4 Severe decrease in GFR 15-29 5 Kidney failure <15 (or dialysis) 14 Because ethnic data is not always readily available, this report includes an eGFR for both -Americans and non- Americans. The National Kidney Disease Education Program (NKDEP) does not endorse the use of the MDRD equation for patients that are not between the ages of 18 and 70, are , have extremes of body size, muscle mass, or nutritional status, or are non- or non-. According to the National Kidney Foundation, irrespective of diagnosis, the stage of the disease is based on the level of kidney function: Stage Description GFR(mL/min/1.73 m(2)) 1 Kidney damage with normal or decreased GFR 90 2 Kidney damage with mild decrease in GFR 60-89 3 Moderate decrease in GFR 30-59 4 Severe decrease in GFR 15-29 5 Kidney failure <15 (or dialysis) 15 Reference Range and Interpretation: TnI (ng/mL) Interpretation Less Than 0.03 ng/mL Not supportive of diagnosis of CT 0.03 - 0.50 ng/mL Indeterminate: suggest serial studies if clinically indicated. Greater than 0.5 ng/mL Consistent with diagnosis of CT 16 Reference Range and Interpretation: TnI (ng/mL) Interpretation Less Than 0.03 ng/mL Not supportive of diagnosis of CT 0.03 - 0.50 ng/mL Indeterminate: suggest serial studies if clinically indicated. Greater than 0.5 ng/mL Consistent with diagnosis of CT 17 Reference Range and Interpretation: TnI (ng/mL) Interpretation Less Than 0.03 ng/mL Not supportive of diagnosis of CT 0.03 - 0.50 ng/mL Indeterminate: suggest serial studies if clinically indicated. Greater than 0.5 ng/mL Consistent with diagnosis of CT 18 Because ethnic data is not always readily available, this report includes an eGFR for both -Americans and non- Americans. The National Kidney Disease Education Program (NKDEP) does not endorse the use of the MDRD equation for patients that are not between the ages of 18 and 70, are , have extremes of body size, muscle mass, or nutritional status, or are non- or non-. According to the National Kidney Foundation, irrespective of diagnosis, the stage of the disease is based on the level of kidney function: Stage Description GFR(mL/min/1.73 m(2)) 1 Kidney damage with normal or decreased GFR 90 2 Kidney damage with mild decrease in GFR 60-89 3 Moderate decrease in GFR 30-59 4 Severe decrease in GFR 15-29 5 Kidney failure <15 (or dialysis) 19 Reference Range and Interpretation: TnI (ng/mL) Interpretation Less Than 0.03 ng/mL Not supportive of diagnosis of CT 0.03 - 0.50 ng/mL Indeterminate: suggest serial studies if clinically indicated. Greater than 0.5 ng/mL Consistent with diagnosis of CT 20 EFRA NOTIFIED TO HAVE [place] TOP DRAWN 1305 21 Because ethnic data is not always readily available, this report includes an eGFR for both -Americans and non- Americans. The National Kidney Disease Education Program (NKDEP) does not endorse the use of the MDRD equation for patients that are not between the ages of 18 and 70, are , have extremes of body size, muscle mass, or nutritional status, or are non- or non-. According to the National Kidney Foundation, irrespective of diagnosis, the stage of the disease is based on the level of kidney function: Stage Description GFR(mL/min/1.73 m(2)) 1 Kidney damage with normal or decreased GFR 90 2 Kidney damage with mild decrease in GFR 60-89 3 Moderate decrease in GFR 30-59 4 Severe decrease in GFR 15-29 5 Kidney failure <15 (or dialysis) 22 Reference Range and Interpretation: TnI (ng/mL) Interpretation Less Than 0.03 ng/mL Not supportive of diagnosis of CT 0.03 - 0.50 ng/mL Indeterminate: suggest serial studies if clinically indicated. Greater than 0.5 ng/mL Consistent with diagnosis of CT 23 Reference Range and Interpretation: TnI (ng/mL) Interpretation Less Than 0.03 ng/mL Not supportive of diagnosis of CT 0.03 - 0.50 ng/mL Indeterminate: suggest serial studies if clinically indicated. Greater than 0.5 ng/mL Consistent with diagnosis of CT 24 Because ethnic data is not always readily available, this report includes an eGFR for both -Americans and non- Americans. The National Kidney Disease Education Program (NKDEP) does not endorse the use of the MDRD equation for patients that are not between the ages of 18 and 70, are , have extremes of body size, muscle mass, or nutritional status, or are non- or non-. According to the National Kidney Foundation, irrespective of diagnosis, the stage of the disease is based on the level of kidney function: Stage Description GFR(mL/min/1.73 m(2)) 1 Kidney damage with normal or decreased GFR 90 2 Kidney damage with mild decrease in GFR 60-89 3 Moderate decrease in GFR 30-59 4 Severe decrease in GFR 15-29 5 Kidney failure <15 (or dialysis) 25 Reference Range and Interpretation: TnI (ng/mL) Interpretation Less Than 0.03 ng/mL Not supportive of diagnosis of CT 0.03 - 0.50 ng/mL Indeterminate: suggest serial studies if clinically indicated. Greater than 0.5 ng/mL Consistent with diagnosis of CT 26 >100 to <200 pg/mL: likely compensated congestive heart failure (CHF) 200 to 400 pg/mL: likely moderate CHF >400 pg/mL: likely moderate to severe CHF 27 Because ethnic data is not always readily available, this report includes an eGFR for both -Americans and non- Americans. The National Kidney Disease Education Program (NKDEP) does not endorse the use of the MDRD equation for patients that are not between the ages of 18 and 70, are , have extremes of body size, muscle mass, or nutritional status, or are non- or non-. According to the National Kidney Foundation, irrespective of diagnosis, the stage of the disease is based on the level of kidney function: Stage Description GFR(mL/min/1.73 m(2)) 1 Kidney damage with normal or decreased GFR 90 2 Kidney damage with mild decrease in GFR 60-89 3 Moderate decrease in GFR 30-59 4 Severe decrease in GFR 15-29 5 Kidney failure <15 (or dialysis) 28 Serum levels of PSA measured using the [employer] DXI Hybritech immunoassay should not be interpreted as absolute evidence of the presence or absence of disease. The PSA value should be used in conjunction with other pertinent clinical diagnostic procedures. The values obtained with different assay methods or kits cannot be used interchangeably. 29 Because ethnic data is not always readily available, this report includes an eGFR for both -Americans and non- Americans. The National Kidney Disease Education Program (NKDEP) does not endorse the use of the MDRD equation for patients that are not between the ages of 18 and 70, are , have extremes of body size, muscle mass, or nutritional status, or are non- or non-. According to the National Kidney Foundation, irrespective of diagnosis, the stage of the disease is based on the level of kidney function: Stage Description GFR(mL/min/1.73 m(2)) 1 Kidney damage with normal or decreased GFR 90 2 Kidney damage with mild decrease in GFR 60-89 3 Moderate decrease in GFR 30-59 4 Severe decrease in GFR 15-29 5 Kidney failure <15 (or dialysis) 30 Serum levels of PSA measured using the [employer] DXI Hybritech immunoassay should not be interpreted as absolute evidence of the presence or absence of disease. The PSA value should be used in conjunction with other pertinent clinical diagnostic procedures. The values obtained with different assay methods or kits cannot be used interchangeably. 31 NO TRAVEL OR ABX, PT HAS CAT, HORSES, AND GOATS. 32 Anion gap measurement may be of limited value in the presence of any alkalosis, especially in a combined acid base disorder. . 33 A metabolite of Naproxen, O-desmethylnaproxen, has been shown to interfere with the Jendrassik-[place] method for measuring total bilirubin. Samples from patients who have taken Naproxen have shown spurious elevation in total bilirubin levels. 34 Because ethnic data is not always readily available, this report includes an eGFR for both -Americans and non- Americans. The National Kidney Disease Education Program (NKDEP) does not endorse the use of the MDRD equation for patients that are not between the ages of 18 and 70, are , have extremes of body size, muscle mass, or nutritional status, or are non- or non-. According to the National Kidney Foundation, irrespective of diagnosis, the stage of the disease is based on the level of kidney function: Stage Description GFR(mL/min/1.73 m(2)) 1 Kidney damage with normal or decreased GFR 90 2 Kidney damage with mild decrease in GFR 60-89 3 Moderate decrease in GFR 30-59 4 Severe decrease in GFR 15-29 5 Kidney failure <15 (or dialysis) 35 RUN DATE: 02/04/12 [facility] NMI LIVE PAGE 1 RUN TIME: 1527 Specimen Inquiry RUN USER: INTERFACE Name: CHARLES VELAZQUEZ Status: REG REF Re02/02/12 Age/Sex: 51/M Unit#: [id number] Location: : 59 SPEC #: [id number] EDWIN: 02/02/12 STATUS: COMP REQ #: [id number] RECD: 02/02/[address]: Lauren Franco SOURCE: STOOL ENTR: 02/02/[address]: MELVINC: ORDERED: STOOL CULTURE, O P: VIK/VANDANA C. DIFF AMP DNA COMMENTS: NO TRAVEL OR ABX, PT HAS CAT, HORSES, AND GOATS. QUERIES: MEDENT REQUISITION # [id number] ACT WKST: SH 02/03/12 #1 Procedure Result Verified Site > STOOL CULT SENSITIVITY Final -1005 ML NEGATIVE FOR THE ENTERIC PATHOGENS - SALMONELLA, SHIGELLA, AEROMONAS, PLESIOMONAS AND YERSINIA. VIBRIO AND E. COLI 0157 NOT ROUTINELY TESTED FOR IN A STOOL CULTURE. PLEASE SUBMIT SAMPLE WITH SPECIFIC REQUEST FOR DESIRED ORGANISM(S). > STOOL SPECIMEN DESCRIPTION Final -1331 ML STOOL COLOR BROWN STOOL FORM NONFORMED STOOL CONSISTENCY SOFT OTHER COMMENTS PASTY > CAMPYLOBACTER CULTURE Final -1005 ML NO GROWTH OF CAMPYLOBACTER AFTER 48 HOURS > SHIGA TOXIN 1 AND 2 (EHEC) Final -1527 ML SHIGA TOXIN 1 NEGATIVE BY IMMUNOCHROMATOGRAPHIC ASSAY SHIGA TOXIN 2 NEGATIVE BY IMMUNOCHROMATOGRAPHIC ASSAY > O P: GIARDIA/CRYPTO SCREEN Final -1439 ML GIARDIA ANTIGEN NEGATIVE BY IMMUNOASSAY CRYPTOSPORIDIUM ANTIGEN NEGATIVE BY IMMUNOASSAY Giardia and cryptosporidium antigen testing performed by immunoassay. If patient is immunocompromised or has traveled to or is from a developing country, a full ova and parasite exam with microscopic (OPMIC) is recommended. All samples will be held one month in case full ova and parasite testing is requested. Contact the Microbiology Department at [phone]. TEST LIMITATIONS: DEPARTMENT OF PATHOLOGY, [address] [place] [address] [facility] Permit #[id number] Robin Menon M.D. Rejected Items Clerk RUN DATE: 02/04/12 [facility] NMI LIVE PAGE 2 RUN TIME: 1527 Specimen Inquiry RUN USER: INTERFACE Name: CHARLES VELAZQUEZ Status: REG REF Re02/02/12 Age/Sex: 51/M Unit#: [id number] Location: 5 : 59 -- -- CONTINU ED Procedure Result Verified Site O P: GIARDIA/CRYPTO SCREEN Final (continued) 02/02/12- 1439 As with all diagnostic procedures, the results obtained should be used in conjunction with other clinical information available the physician. Negative results can occur in samples containing antigen below lower limits of detection of the assay. The use of colonic washes, aspirates or other diluted sample types has not been established and could affect the performance of the assay. Stool samples contaminated with an oily or particulate base (eg. Barium, mineral oil etc.) could interfere with the test and are not recommended. > C. DIFFICILE AMPLIFIED DNA Final -1501 ML C. DIFFICILE AMPLIF DNA NEGATIVE: NO TOXIGENIC C. DIFFICILE DETECTED. TEST LIMITATIONS: Assay does not distinguish between viable and non-viable organisms. Test results are to be used in conjunction with information available from the patient clinical evaluation and other diagnostic procedures. Two distinct groups have been identified that can harbor C. difficile asymptomatically at very high rates. Colonization at rates up to 50% and higher have been reported in infants and rates up to 32% in cystic fibrosis patients. - [facility] Permit #[id number] [address] [place] [address] DEPARTMENT OF PATHOLOGY, [address] [place] [address] [facility] Permit #[id number] Moreno Porter M.D. Director Fabiola Mcleod M.D. Rejected Items Clerk 36 SPECIMEN DESCRIPTION: URINE, CLEAN CATCH 37 FINAL: NO GROWTH DAY 2 (<1,000 CFU/mL) 38 Anion gap measurement may be of limited value in the presence of any alkalosis, especially in a combined acid base disorder. . 39 Because ethnic data is not always readily available, this report includes an eGFR for both -Americans and non- Americans. The National Kidney Disease Education Program (NKDEP) does not endorse the use of the MDRD equation for patients that are not between the ages of 18 and 70, are , have extremes of body size, muscle mass, or nutritional status, or are non- or non-. According to the National Kidney Foundation, irrespective of diagnosis, the stage of the disease is based on the level of kidney function: Stage Description GFR(mL/min/1.73 m(2)) 1 Kidney damage with normal or decreased GFR 90 2 Kidney damage with mild decrease in GFR 60-89 3 Moderate decrease in GFR 30-59 4 Severe decrease in GFR 15-29 5 Kidney failure <15 (or dialysis) 40 Anion gap measurement may be of limited value in the presence of any alkalosis, especially in a combined acid base disorder. . 41 A metabolite of Naproxen, O-desmethylnaproxen, has been shown to interfere with the Jendrassik-[place]arsha method for measuring total bilirubin. Samples from patients who have taken Naproxen have shown spurious elevation in total bilirubin levels. 42 Because ethnic data is not always readily available, this report includes an eGFR for both -Americans and non- Americans. The National Kidney Disease Education Program (NKDEP) does not endorse the use of the MDRD equation for patients that are not between the ages of 18 and 70, are , have extremes of body size, muscle mass, or nutritional status, or are non- or non-. According to the National Kidney Foundation, irrespective of diagnosis, the stage of the disease is based on the level of kidney function: Stage Description GFR(mL/min/1.73 m(2)) 1 Kidney damage with normal or decreased GFR 90 2 Kidney damage with mild decrease in GFR 60-89 3 Moderate decrease in GFR 30-59 4 Severe decrease in GFR 15-29 5 Kidney failure <15 (or dialysis) 43 Anion gap measurement may be of limited value in the presence of any alkalosis, especially in a combined acid base disorder. . 44 Note change in reference range as of 02/10/08. The change was based on recommendations from the [place] [employer]. 45 A metabolite of Naproxen, O-desmethylnaproxen, has been shown to interfere with the Jendrassik-Tarsha method for measuring total bilirubin. Samples from patients who have taken Naproxen have shown spurious elevation in total bilirubin levels. 46 Because ethnic data is not always readily available, this report includes an eGFR for both -Americans and non- Americans. The National Kidney Disease Education Program (NKDEP) does not endorse the use of the MDRD equation for patients that are not between the ages of 18 and 70, are , have extremes of body size, muscle mass, or nutritional status, or are non- or non-. According to the National Kidney Foundation, irrespective of diagnosis, the stage of the disease is based on the level of kidney function: Stage Description GFR(mL/min/1.73 m(2)) 1 Kidney damage with normal or decreased GFR 90 2 Kidney damage with mild decrease in GFR 60-89 3 Moderate decrease in GFR 30-59 4 Severe decrease in GFR 15-29 5 Kidney failure <15 (or dialysis) 47 Anion gap measurement may be of limited value in the presence of any alkalosis, especially in a combined acid base disorder. . 48 Note change in reference range as of 02/10/08. The change was based on recommendations from the [place] [employer]. 49 Please note change in reference range effective 07 . 50 A metabolite of Naproxen, O-desmethylnaproxen, has been shown to interfere with the Jendrassik-Tarsha method for measuring total bilirubin. Samples from patients who have taken Naproxen have shown spurious elevation in total bilirubin levels. 51 Because ethnic data is not always readily available, this report includes an eGFR for both -Americans and non- Americans. The National Kidney Disease Education Program (NKDEP) does not endorse the use of the MDRD equation for patients that are not between the ages of 18 and 70, are , have extremes of body size, muscle mass, or nutritional status, or are non- or non-. According to the National Kidney Foundation, irrespective of diagnosis, the stage of the disease is based on the level of kidney function: Stage Description GFR(mL/min/1.73 m(2)) 1 Kidney damage with normal or decreased GFR 90 2 Kidney damage with mild decrease in GFR 60-89 3 Moderate decrease in GFR 30-59 4 Severe decrease in GFR 15-29 5 Kidney failure <15 (or dialysis) 52 CHOLESTEROL INTERPRETATION: Desirable: Less than 200 MG/DL Borderline-High Risk: 200-239 MG/DL High-Risk: 240 MG/DL and over 53 HDL INTERPRETATION: Undesirable: High Risk: Less than 40 MG/DL Desirable: Low Risk: Greater than 60 MG/DL 54 LDL INTERPRETATION: Low Risk Optimal Level: LDL Less than 100 MG/DL Near or Above Optimal: LDL 100-129 MG/DL Borderline High Risk: LDL 130-159 MG/DL High Risk: LDL 160-189 MG/DL Very High Risk: LDL Greater than 189 MG/DL 55 * SERUM LEVELS OF PSA MEASURED USING THE RAMAN Wander (f. [employer]) ACCESS HYBRITECH IMMUNOASSAY SHOULD NOT BE INTERPRETED ABSOLUTE EVIDENCE OF THE PRESENCE OR ABSENCE OF DISEASE. THE PSA VALUE SHOULD BE USED IN CONJUNCTION WITH OTHER PERTINENT CLINICAL DIAGNOSTIC PROCEDURES. 56 ---- RUN DATE: 11/30/07 [facility] NMI LIVE PAGE 1 RUN TIME: 1622 Specimen Inquiry RUN USER: INTERFACE -- Name: MARCUSCHARLES Status: REG REF Re11/26/07 Age/Sex: 47/M Unit#: [id number] Location: [facility]. : 58 -- Specimen: [id number] [facility] Spec Date: 11/26/07 [facility] Dr: Hong corona MD Spec Type: SURGICAL P Received: 11/29/07 Copies to: SPECIMEN LEFT UPPER BACK HISTORY PRE-OP DIAGNOSIS: Verrucous horn on left upper back CLINICAL INFORMATION: Present for several months, increased in size, may have some trauma GROSS DESCRIPTION The specimen is received in formalin labelled Charles Velazquez, Left Back, and consists of an unoriented, irregular, skin ellipse measuring 0.8 x 0.6 x 0.4 cm. with a central, slightly raised, non-pigmented macule in the center of the ellipse measuring up to 0.4 cm. in maximal dimension. The specimen is inked, serially sectioned and submitted entirely in one cassette. DIAGNOSIS Skin, left upper back, excision: Verrucous keratosis. Signed Electronically by: MORENO PORTER MD 11/30/07 1622 -- -- DEPARTMENT OF PATHOLOGY, [address] [place] [address] [facility] Permit #[id number] Moreno Porter M.D. Director of Laboratories -- 57 ---- RUN DATE: 07/09/06 [facility] NMI LIVE PAGE 1 RUN TIME: 1359 Specimen Inquiry RUN USER: INTERFACE [id number] CHARLES VELAZQUEZ/Sindy <REG REF 07/07> ([id number]) Moisés Humphrey MD, am -- Specimen: [id number] SOUT Spec Date: 07/08/[address]: Hong corona MD Spec Type: SURGICAL P Received: 07/08/06-1008 Copies to: SPECIMEN SEBACEOUS CYST HISTORY PRE-OP DIAGNOSIS: Intradermal sebaceous cyst CLINICAL INFORMATION: Present for three weeks, has been on antibiotics, c omplete cyst removed GROSS DESCRIPTION The specimen is received in formalin labelled Charles Velazquez, Skin Upper Back, and consists of skin with attached fibrofatty tissue and a fragment of gautam-lewis grumous debris. The skin ellipse measures 2.0 x 2.0 x 1.2 cm. and demonstrates an underlying cystic cavity. The fragment of debris measures 1.0 x 0.8 x 0.6 cm. Powerhouse Mechanic section, one cassette. DIAGNOSIS Skin, upper back, excision - Epidermal inclusion cyst. Signed Electronically signed MORENO PORTER MD 07/09/06 -- -- DEPARTMENT OF PATHOLOGY, [address] [place] [address] [facility] Permit #[id number] Hong Oakes II, M.D. Director Moreno Porter M.D. Animal Feeder Betina irector -- Procedures Date CPT Code Description Status Comment 08/13/2017 64654 Remove Impact Cerumen Completed Irrigation/Lavage Unilateral 06/22/2011 Colonoscopy Completed normal, sigmoid diverticulosis 11/26/2009 0 Payment Completed 09/28/2009 54472 Destruction Of Skin Lesions Completed Up To 14 Flat Warts/Molluscum Contag 09/28/2009 17153 Destruction Premalignant Skin Completed Lesions, 2-14,Ea 09/28/2009 49074 Destruction Premalignant Skin Completed Lesions 04/17/2008 08796 Electrocardiogram Complete Completed 11/26/2007 28709 Shave Skin Lesion .6-1CM Completed Trunk/Arm/Leg 07/07/2006 56043 Layer Closure Wound Completed 2.6-7.5CM Scalp/Axillae/Trunk/Extremiti es 07/07/2006 15577 Excise Benign Lesion 2.1-3CM Completed Trunk/Arm/Leg Encounters Type Date Location Provider CPT E/M Dx Office Visit 10/05/2017 3:20p Main Office Alireza Mckay 61208 R10.9 S40.262A Office Visit 08/05/2017 3:00p Main Office Rafael Vasques M.D. 76149 R10.30 Z87.442 K42.9 Office Visit 03/14/2013 4:45p Main Office Rafael Vasques M.D. 28766 788.1 V13.01 Office Visit 05/14/2012 11:00a Main Office Alireza Mckay 84343 461.8 Office Visit 02/05/2012 10:20a Main Office Alireza Mckay 95336 787.91 Office Visit 01/31/2012 9:30a Main Office Alireza Mckay 83500 787.91 Office Visit 05/26/2011 10:45a Main Office Hong Francisco M.D. 15596 786.09 592.0 V70.0 V76.51 V65.49 Office Visit 05/21/2011 11:40a Main Office Alireza Mckay 88735 788.1 599.70 Office Visit 01/14/2011 1:55p Main Office Hong Francisco M.D. 19994 924.01 850.9 Office Visit 01/08/2011 4:45p Main Office Rafael Vasques M.D. 51092 924.01 850.9 Office Visit 01/02/2011 12:55p Main Office Hong Francisco M.D. 82388 850.9 922.2 924.5 922.1 Office Visit 11/25/2010 9:05a Main Office Hong Francisco M.D. 61321 780.79 302.75 V78.0 Office Visit 05/27/2010 3:45p Main Office Hong Francisco M.D. 03888 302.75 780.79 Office Visit 01/28/2010 8:55a Main Office Hong Francisco M.D. 79921 302.75 Office Visit 10/15/2009 2:30p Main Office Rafael Vasques M.D. 27216 840.4 E821.2 Office Visit 09/28/2009 9:15a Main Office Hong Francisco M.D. 33199 702.0 702.19 V76.51 V70.0 302.75 V06.1 V07.2 V81.6 v81.6 Office Visit 03/09/2009 3:30p [place] [address] 726.32 Office Visit 11/07/2008 2:45p Main Office Rafael Vasques M.D. 86436 530.81 Office Visit 04/17/2008 2:15p Main Office Hong Francisco M.D. 94428 796.2 786.50 Office Visit 11/26/2007 1:10p Main Office Hong Francisco M.D. 77515 238.2 216.9 Office Visit 06/07/2004 2:30p Main Office Rafael Vasques M.D. 83859 599.7 592.9 Plan of Care 10/05/2017 - Lauren Son, PMikalaA.R10.9 Unspecified abdominal painComments: watchful waiting. as was a little worse, possibly bug that he is getting over. cut back on amt of cheese if pain is in range of 7+/10, call us for appt or go to [facility] or ER as can be [id number] Insect bite (nonvenomous) of left shoulder , init encntrNew Medication:Doxycycline Hyclate 100 mgComments:tick removed w/o difficultydiscussed sxs to watch out for, let us know right away.
[2017-10-25] MEDS ORDERED: Ketorolac INJ* 60 MG/2 ML VIAL IM ONE (15:25)
--- NOTE | 2017-10-25 15:38 | UC ---
Abdifatah Harris Gabriel, scribed for Tracy Moore MD on 10/25/17 at 1514 . Upper Extremity HPI - HPI Summary HPI Summary: This patient is a 57 year old M presenting to [facility] accompanied by his son s/p fall from scaffolding that was 4 feet in the air, 2 hours INFORMATION SECURITY DIRECTOR. The patient fell onto a metal bar injuring the right side of his body. The patient rates the pain 8/10 in severity. Patient reports nausea, right arm pain, and right flank pain. Patient denies head/neck trauma, LOC, SOB, vomiting, and clavicular pain. Pt has chronic kidney stones and passed one yesterday. - History of Current Complaint Chief Complaint: UCUpperExtremity Stated Complaint: ARM INJURY Time Seen by Provider: 10/25/17 15:00 Hx Obtained From: Patient Onset/Duration: Lasting Hours, Still Present Severity Initially: Severe Severity Currently: Severe Pain Intensity: 8 Pain Scale Used: 0-10 Numeric Associated Signs And Symptoms: Positive: Negative - head/neck trauma, LOC, SOB, , Other - right arm pain - Allergies/Home Medications Allergies/Adverse Reactions: Allergies Allergy/AdvReac Type Severity Reaction Status Date / Time No Known Allergies Allergy Verified 10/25/17 14:14 PMH/Surg Hx/FS Hx/Imm Hx Cardiovascular History: Hypertension, Myocardial Infarction - 2014 GI/ History: Kidney Stones - Surgical History Surgical History: Yes Surgery Procedure, Year, and Place: KIDNEY STONES X 3, [facility] 2004. RIGHT WRIST, [facility]. VASECTOMY, [facility] - Family History Known Family History: Positive: Cardiac Disease, Hypertension Negative: Diabetes - Social History Occupation: Employed Full-time Lives: With Family Alcohol Use: None Substance Use Type: None Smoking Status (MU): Former Smoker Type: Cigarettes Amount Used/How Often: PACK A DAY X 6 YRS; 20+years ago Have You Smoked in the Last Year: No When Did the Patient Quit Smoking/Using Tobacco: 1983 - Immunization History Most Recent Influenza Vaccination: never Most Recent Tetanus Shot: within last 10 years Most Recent Pneumonia Vaccination: never Review of Systems Constitutional: Negative Skin: Negative Eyes: Negative ENT: Negative Respiratory: Negative - no rib pain or dyspnea or chest pain Cardiovascular: Negative - no recent angina, Other Gastrointestinal: Nausea Genitourinary: Other - frequently passes kidney stones, most recently yesterday. Reviewed that monitoring for blood is not useful in his situation. Motor: Negative Neurovascular: Negative Musculoskeletal: Other: - right arm and right flank Neurological: Negative - LOC Psychological: Negative Is Patient Immunocompromised?: No All Other Systems Reviewed And Are Negative: Yes Physical Exam Triage Information Reviewed: Yes Appearance: Well-Nourished, Pain Distress - moderate with movement, comfortable at rest., Signs of Trauma - abrasions left forearm and left flank Vital Signs: Initial Vital Signs Temp 98.7 F 10/25/17 14:09 Pulse 51 10/25/17 14:09 Resp 18 10/25/17 14:09 BP 133/87 10/25/17 14:09 Pulse Ox 97 10/25/17 14:09 Eye Exam: Normal - TARI, no photophobia. Eyes: Positive: Conjunctiva Clear ENT: Positive: Pharynx normal Neck: Positive: Supple, Nontender Respiratory: Positive: Chest non-tender - no rib pain, no pain in thoracic spine., Lungs clear, Normal breath sounds Cardiovascular: Positive: RRR, No Murmur Abdomen Description: Positive: Nontender, No Organomegaly, Soft, Other: - small umbilical hernia with skin tag present.. Negative: CVA Tenderness (R), CVA Tenderness (L) Bowel Sounds: Positive: Present Musculoskeletal: Positive: ROM Intact - at left shoulder, elbow, wrist. Full pronation and supination of the right elbow. Swelling over ulnar border of forearm with superficial abrasion., Other: - full rom in hip Neurological: Positive: Alert, Muscle Tone Normal Psychological Exam: Normal Skin Exam: Other - abrasion right flank 6 cm x 2 cm Upper Extremity Course/Dx - Course Course Of Treatment: abrasions cleaned and dressed. Toradol for pain control. No indication for xrays. - Differential Dx/Diagnosis Differential Diagnosis/HQI/PQRI: Contusion, Fracture (Closed), Strain Provider Diagnoses: contusion right forearm and right flank. Abrasions right forearm and flank. Discharge - Sign-Out/Discharge Documenting (check all that apply): Discharge/Admit/Transfer - Discharge Plan Condition: Stable Disposition: HOME Patient Education Materials: Contusion in Adults (ED) Referrals: Rafael Vasques MD [Primary Care Provider] - Additional Instructions: You were given an injection of toradol for pain control, which will give relief for about 6 hours. Ice the right forearm and flank areas for 10 to 15 minutes every few hours today and tomorrow. The preferred medication for pain control is acetaminophen in individuals who have heart disease and hypertension. You can use anti-inflammatories with caution, but acetaminophen 1000 mg every 6 hours to a max daily dose of 3000 mg is the preferred medication. Anticipate that you will be stiff and sore for 1 to 2 weeks. Monitor for increasing pain in the right forearm with pain with hand movement=- this could suggest a compartment syndrome and requires immediate reassessment. - Billing Disposition and Condition Condition: STABLE Disposition: HOME The documentation as recorded by the Abdifatah irizarry Gabriel accurately reflects the service I personally performed and the decisions made by me, Tracy Moore MD.
[2017-10-25 15:56] VITALS: BP 120/81
== END 2017-10-25 15:50 | disposition home or self-care (01) ==
LOC: UCEAST 13:38
DX: S50.11XA Contusion of right forearm, initial encounter (principal); S30.1XXA Contusion of abdominal wall, initial encounter; S50.811A Abrasion of right forearm, initial encounter; S30.811A Abrasion of abdominal wall, initial encounter; W12.XXXA Fall on and from scaffolding, initial encounter; Y93.H3 Activity, building and construction; Y92.9 Unspecified place or not applicable; I25.2 Old myocardial infarction; I10 Essential (primary) hypertension; Z87.442 Personal history of urinary calculi; Z87.891 Personal history of nicotine dependence
CPT/HCPCS: 96372; 99212; G0463; J1885

== ENCOUNTER 2018-01-10 04:06 | Emergency (ER) | payer OTHER ==
[2018-01-10] MEDS ORDERED: NS 0.9% 1000 ML* 1,000 ML IV ONE (04:44)
[2018-01-10 05:12] LABS: ABS Basophils 0 10^3/ul (0-0.2); ABS Eosinophils 0.2 10^3/ul (0-0.6); ABS Lymphocytes 2.2 10^3/ul (1.0-4.8); ABS Monocytes 0.4 10^3/ul (0-0.8); ABS Nucleated RBC 0 10^3/ul; Hematocrit 40 % (42-52); Hemoglobin 13.9 g/dl (14.0-18.0); Lymphocyte % 44.9 % (25-47); Mean Corpuscular HGB Conc 34 g/dl (31-36); Mean Corpuscular Hemoglobin 31 pg (27-31); Mean Corpuscular Volume 90 fL (80-94); Mean Platelet Volume 8.5 um3 (7.4-10.4); Nucleated Red Blood Cells % 0.1; Platelet Count 157 10^3/ul (150-450); Red Blood Count 4.48 10^6/ul (4.00-5.40); Red Cell Distribution Width 14 % (10.5-15); White Blood Count 4.8 10^3/ul (3.5-10.8)
[2018-01-10 05:18] LABS: INR 0.9 (0.77-1.02)
[2018-01-10 05:34] LABS: EGFR Non-African American 84.5 (>60)
--- NOTE | 2018-01-10 05:37 | ED ---
GI/ HPI - HPI Summary HPI Summary: This is edie Magnusriley Cordova documenting for attending Dr. Annette Salter MD. A 57 y/o male presents to the ED c/o blood in urine. As per triage, "Patient reports unable to void and dribbling of blood. Hx of frequent kidney stones". According to the patient, he has been experiencing bloody discharged for sometime. He noted that he has a PMHx of several kidney stones which he thinks could be the cause. Pt denies any diarrhea or abdominal pain. Patient is otherwise healthy with the exception of bleeding. - History of Current Complaint Chief Complaint: EDUrogenitalProblems Time Seen by Provider: 01/10/18 04:18 Stated Complaint: UNABLE TO URINATE Hx Obtained From: Patient Onset/Duration: Still Present Timing: Constant Severity: Severe Current Severity: Severe Pain Intensity: 8 Additional Locations for Males: Penis Associated Signs and Symptoms: Negative: Diarrhea, Abdominal Pain Additional Signs & Symptoms: Positive: Penile Discharge Aggravating Factor(s): Nothing Alleviating Factor(s): Nothing - Additional Pertinent History Primary Care Physician: KHLOE - Allergy/Home Medications Allergies/Adverse Reactions: Allergies Allergy/AdvReac Type Severity Reaction Status Date / Time No Known Allergies Allergy Verified 10/25/17 14:14 PMH/Surg Hx/FS Hx/Imm Hx Endocrine/Hematology History: Denies: Hx Diabetes, Hx Thyroid Disease Cardiovascular History: Reports: Hx Angina, Hx Coronary Artery Disease, Hx Hypercholesterolemia, Hx Hypertension, Hx Myocardial Infarction Denies: Hx Valvular Heart Disease, Other Cardiovascular Problems/Disorders Respiratory History: Denies: Hx Asthma, Hx Chronic Obstructive Pulmonary Disease (COPD), Other Respiratory Problems/Disorders GI History: Denies: Hx Ulcer, Other GI Disorders History: Reports: Hx Kidney Stones - BILAT KIDNEY STONES Denies: Other Problems/Disorders Musculoskeletal History: Denies: Other Musculoskeletal History Sensory History: Reports: Hx Contacts or Glasses Denies: Hx Hearing Aid Opthamlomology History: Reports: Hx Contacts or Glasses Neurological History: Denies: Other Neuro Impairments/Disorders - Surgical History Surgery Procedure, Year, and Place: KIDNEY STONES X 3, [facility] 2003. RIGHT WRIST, [facility]. [facility]ASECTOMY, [facility] Hx Anesthesia Reactions: No Infectious Disease History: No Infectious Disease History: Denies: Hx Clostridium Difficile, Hx Hepatitis, Hx Human Immunodeficiency Virus (HIV), Hx of Known/Suspected MRSA, Hx Shingles, Hx Tuberculosis, Hx Known/ Suspected VRE, Hx Known/Suspected VRSA, History Other Infectious Disease, Traveled Outside the [place] in Last 30 Days - Family History Known Family History: Positive: Cardiac Disease, Hypertension Negative: Diabetes - Social History Alcohol Use: None Hx Substance Use: No Substance Use Type: Reports: None Hx Tobacco Use: Yes Smoking Status (MU): Former Smoker Type: Cigarettes Amount Used/How Often: PACK A DAY X 6 YRS; 20+years ago Have You Smoked in the Last Year: No Review of Systems Negative: Fever Negative: Abdominal Pain, Diarrhea Positive: dysuria All Other Systems Reviewed And Are Negative: Yes Physical Exam - Summary Physical Exam Summary: VITAL SIGNS: Reviewed. GENERAL: Patient is a well-developed and nourished male who is lying comfortable in the stretcher. Patient is not in any acute respiratory distress. Dialysis catheter on right chest wall. HEAD AND FACE: No signs of trauma. No ecchymosis, hematomas or skull depressions. No sinus tenderness. EYES: PERRLA, EOMI x 2, No injected conjunctiva, no nystagmus. EARS: Hearing grossly intact. Ear canals and tympanic membranes are within normal limits. MOUTH: Oropharynx within normal limits. NECK: Supple, trachea is midline, no adenopathy, no JVD, no carotid bruit, no c- spine tenderness, neck with full ROM. CHEST: Symmetric, no tenderness at palpation LUNGS: Clear to auscultation bilaterally. No wheezing or crackles. CVS: Regular rate and rhythm, S1 and S2 present, no murmurs or gallops appreciated. ABDOMEN: Soft, lower abdominal tenderness. No signs of distention. No rebound no guarding, and no masses palpated. Bowel sounds are normal. EXTREMITIES: FROM in all major joints, no edema, no cyanosis or clubbing. NEURO: Alert and oriented x 3. No acute neurological deficits. Speech is normal and follows commands. SKIN: Dry and warm Triage Information Reviewed: Yes Vital Signs On Initial Exam: Initial Vitals Temp Pulse Resp BP Pulse Ox 97.4 F 63 20 124/85 97 01/10/18 04:12 01/10/18 04:12 01/10/18 04:12 01/10/18 04:12 01/10/18 04:12 Vital Signs Reviewed: Yes Diagnostics - Vital Signs Vital Signs Temp Pulse Resp BP Pulse Ox 01/10/18 04:12 97.4 F 63 20 124/85 97 - Laboratory Lab Results: Lab Results 01/10/18 01/10/18 01/10/18 Range/Units 04:52 04:52 04:52 WBC 4.8 (3.5-10.8) 10^3/ul RBC 4.48 (4.00-5.40) 10^6/ul Hgb 13.9 L (14.0-18.0) g/dl Hct 40 L (42-52) % MCV 90 (80-94) fL MCH 31 (27-31) pg MCHC 34 (31-36) g/dl RDW 14 (10.5-15) % Plt Count 157 (150-450) 10^3/ul MPV 8.5 (7.4-10.4) um3 Neut % (Auto) 40.9 (38-83) % Lymph % (Auto) 44.9 (25-47) % [place] % (Auto) 9.3 H (0-7) % Eos % (Auto) 4.0 (0-6) % Baso % (Auto) 0.9 (0-2) % Absolute Neuts (auto) 2.0 (1.5-7.7) 10^3/ul Absolute Lymphs (auto) 2.2 (1.0-4.8) 10^3/ul Absolute Monos (auto) 0.4 (0-0.8) 10^3/ul Absolute Eos (auto) 0.2 (0-0.6) 10^3/ul Absolute Basos (auto) 0 (0-0.2) 10^3/ul Absolute Nucleated RBC 0 10^3/ul Nucleated RBC % 0.1 INR (Anticoag Therapy) 0.90 (0.77-1.02) APTT 31.6 (26.0-36.3) seconds Sodium 139 (135-145) mmol/L Potassium 3.1 L (3.5-5.0) mmol/L Chloride 104 (101-111) mmol/L Carbon Dioxide 29 (22-32) mmol/L Anion Gap 6 (2-11) mmol/L BUN 17 (6-24) mg/dL Creatinine 0.92 (0.67-1.17) mg/dL Est GFR ( Amer) 102.2 (>60) Est GFR (Non-Af Amer) 84.5 (>60) BUN/Creatinine Ratio 18.5 (8-20) Glucose 108 H (70-100) mg/dL Calcium 8.6 (8.6-10.3) mg/dL Total Bilirubin 0.40 (0.2-1.0) mg/dL AST 18 (13-39) U/L ALT 18 (7-52) U/L Alkaline Phosphatase 40 (34-104) U/L C-Reactive Protein 1.43 (<8.01) mg/L Total Protein 5.9 L (6.4-8.9) g/dL Albumin 3.6 (3.2-5.2) g/dL Globulin 2.3 (2-4) g/dL Albumin/Globulin Ratio 1.6 (1-3) Result Diagrams: 01/10/18 04:52 01/10/18 04:52 Lab Statement: Any lab studies that have been ordered have been reviewed, and results considered in the medical decision making process. - CT CT A/P CT Interpretation Completed By: Radiologist - 1. Multiple non-obstructing bilateral renal stones measuring up to 8 mm. No obstructing stones. No hydronephrosis. 2. Colonic diverticulosis with no evidence of acture diverticulitis. ED physician reviewed this radiology report. Re-Evaluation - Re-Evaluation First Eval Re-Evaluation Time: 06:25 Comment: Patient refused to leave full catheter in. Patient removed the catheter. Pt will be discharged. Second Eval Re-Evaluation Time: 06:35 Comment: Patient's hematuria catheter got clogged so nurse irrigated the blood clots out. At this point, there is enough hematuria to arrange a 3-way catheter. SO to Dr. MENEZES, pending reeval. GIGU Course/Dx - Course Course Of Treatment: A 57 y/o male presents to the ED c/o blood in urine. As per triage, "Patient reports unable to void and dribbling of blood. Hx of frequent kidney stones". According to the patient, he has been experiencing bloody discharged for sometime. He noted that he has a PMHx of several kidney stones which he thinks could be the cause. Pt denies any diarrhea or abdominal pain. Patient is otherwise healthy with the exception of bleeding. A CT A/P revealed 1. Multiple non-obstructing bilateral renal stones measuring up to 8 mm. No obstructing stones. No hydronephrosis. 2. Colonic diverticulosis with no evidence of acture diverticulitis. In the ED course, the patient recieved Klor Con Er Tab and IV fluids. Patient refused to leave full catheter in. Patient removed the catheter. Patient's hematuria catheter got clogged so nurse irrigated the blood clots out. At this point, there is enough hematuria to arrange a 3-way catheter. SO to Dr. MENEZES, pending reeval. - Diagnoses Provider Diagnoses: Hematuria, UTI (urinary tract infection) Discharge - Sign-Out/Discharge Documenting (check all that apply): Patient Departure - DISCHARGE Signing out patient TO: Donald Menezes Receiving patient FROM: Annette Salter - Discharge Plan Condition: Stable Disposition: HOME Patient Education Materials: Urinary Tract Infection in Men (ED), Hematuria (ED ) Referrals: Rafael Vasques MD [Primary Care Provider] - Evangelist Cordova MD [Medical Doctor] - 1 Day () Additional Instructions: FOLLOW UP WITH UROLOGY TOMORROW. RETURN TO ED FOR ANY NEW OR WORSENING SYMPTOMS.
[2018-01-10] MEDS ORDERED: Potassium Chlor TAB* 20 MEQ TAB.ER PO ONE (05:39)
[2018-01-10 06:19] LABS: Urine Appearance Cloudy; Urine Blood 2+ (Negative); Urine Ketones Negative (Negative); Urine Protein 2+(100 mg/dL) (Negative); Urine Red Blood Cell 3+(>10/hpf) (Absent); Urine Specific Gravity 1.014 (1.010-1.030); Urine Urobilinogen Negative (Negative); Urine White Blood Cell Trace(0-5/hpf) (Absent)
[2018-01-10 06:21] LABS: Urine Color Red
[2018-01-10] MEDS ORDERED: Lidocaine 2% JELLY* 6 ML JELLY TOPICAL ONE (06:45)
[2018-01-10] MEDS ORDERED: Morphine INJ* 10 MG/ML 1 ML CARPUJECT IV ONE (07:34)
[2018-01-10] MEDS ORDERED: Ondansetron INJ* 2 MG/ML VIAL IV ONE (07:35)
--- NOTE | 2018-01-10 07:42 | ED ---
Progress - Progress Note Progress Note: This patient was signed out from Dr. Salter to Dr. Menezes, pending re-eval. Upon re-eval at 0732, the patient is in a tremendous amount of pain. Will call Dr. Cordova. In the ED course, the patient was given Morphine. Consulted Dr. Cardenas at 0744 who called in return for Dr. Cordova and said he will come see the patient in the ED. Consulted Dr. Cardenas at 0925 who said he put a boland catheter in the patient and to discharge him with Bactrum and instructions to follow up with him at his office. Re-Evaluation - Re-Evaluation First Eval Re-Evaluation Time: 06:25 Comment: Patient refused to leave full catheter in. Patient removed the catheter. Pt will be discharged. Second Eval Re-Evaluation Time: 06:35 Comment: Patient's hematuria catheter got clogged so nurse irrigated the blood clots out. At this point, there is enough hematuria to arrange a 3-way catheter. SO to Dr. MENEZES, pending reeval. Course/Dx - Diagnoses Provider Diagnoses: Hematuria, Urinary retention Discharge - Sign-Out/Discharge Documenting (check all that apply): Patient Departure - Discharge Plan Condition: Stable Disposition: HOME Prescriptions: Sulfamethox/Trimethoprim DS* [Bactrim DS 800/160 TAB*] 1 tab PO BID #14 tab Patient Education Materials: Boland Catheter Placement and Care (ED) Referrals: Eduardo Cardenas MD [Medical Doctor] - (Follow up with Dr. Cardenas tomorrow.) Additional Instructions: FOLLOW UP WITH DR. CARDENAS (UROLOGY) TOMORROW. RETURN TO ED FOR ANY NEW OR WORSENING SYMPTOMS. FOLLOW BOLAND CATHETER CARE. TAKE ADVIL PM 1 TABLET EVERY 6 HOURS NEEDED FOR BLADDER SPASMS. - Billing Disposition and Condition Condition: STABLE Disposition: Home
[2018-01-10] MEDS ORDERED: Morphine VIAL* 10 MG/ML 1 ML VIAL ONE (07:44)
--- NOTE | 2018-01-10 08:53 | RAD ---
INDICATION: Hematuria. History of urolithiasis. COMPARISON: September 04, 2016 abdomen radiograph and December 08, 2015 LEFT renal ultrasound. TECHNIQUE: Multidetector CT images were obtained from the lung bases to the ischial tuberosities. Evaluation of the viscera is limited without IV contrast. Multiplanar reformation. REPORT: Unremarkable visualized inferior thorax. A few sharply circumscribed water density hepatic lesions with dominant 1.2 cm lesion at the LEFT lateral hepatic segment are only mildly enlarged compared with the June 10, 2004 exam consistent with benign cysts. Negative for suspicious focal hepatic lesions or biliary dilatation. No CT abnormality of the gallbladder. Unremarkable pancreas and spleen. Negative for CT abnormality of the upper GI, small bowel, or appendix. Moderate diverticulosis of the sigmoid colon without findings of diverticulitis. Negative for ascites or free air. Small fat-containing umbilical hernia without inflammatory change. Normal adrenal glands. LEFT larger than RIGHT burden of nephrolithiasis. Large stone on the RIGHT measures 0.5 cm. Largest stone on the LEFT measures 1.1 cm. Mild LEFT caliectasis. Negative for RIGHT or LEFT ureteral dilatation or stones. Negative for perinephric or periureteral inflammatory stranding. Catheterized partially distended urinary bladder with air-fluid level. Symmetric seminal vesicles. Negative for lymphadenopathy. Atherosclerotic calcification of normal diameter abdominal aorta and iliac arteries. Physiologic distention of the IVC. Negative for suspicious osseous lesions. IMPRESSION: #. Large burden of LEFT greater than RIGHT nephrolithiasis. Mild caliectasis of the LEFT kidney similar in magnitude to the 2016 ultrasound. No obstructing ureteral pelvic, ureteral, or ureterovesicular stone evident. #. Moderate sigmoid colon diverticulosis without evidence for acute diverticulitis.
[2018-01-10 11:28] VITALS: BP 130/81
--- NOTE | 2018-01-10 14:37 | CONS ---
CONSULTATION NOTE: DATE OF CONSULT: 01/10/18 - EMERGENCY DEPT FINAL DIAGNOSES: 1. Clot urinary retention. 2. Urethral stricture. 3. Non-obstructing bilateral renal calculi. PROCEDURE: Complex placement of Juares catheter (22-Angolan). Irrigation of clot urinary retention. HISTORY OF PRESENT ILLNESS: Mr. Plunkett is a 57-year-old white male who has been followed in our office by Dr. Cordova because of renal calculus disease. He has been asymptomatic from them and has had no recent episodes of colic. He has moderate obstructive voiding symptoms with some hesitancy and decreased urinary stream. He; however, feels good bladder emptying. He has nocturia about twice, day frequency about every 2 hours associated with increased fluid intake. He presented to the emergency room early this morning with a new onset of gross hematuria, followed by inability to void. There was no associated burning on urination, flank pain, fever, or chills. In the emergency room, his lab work showed normal CBC and differential. Urinalysis showed blood, but no signs of infection. Non-contrast CT of the abdomen and pelvis showed bilateral nonobstructing renal calculi. There were no solid masses noted in the kidneys. The bladder was moderately distended. In the emergency room, he had a Juares catheter placed. There were clots and the catheter became occluded. He had a 3-way Juares catheter placed and was put on continuous bladder irrigation. He was still not draining well and he was feeling very uncomfortable. A consultation was obtained. When I saw him his vital signs were normal. He was complaining of suprapubic discomfort. He did not have any flank pain. On examination, the bladder felt moderately distended. External genitalia were normal. Rectal examination was not performed. The 3-way Juares catheter was removed and I placed a 22-Angolan Juares catheter. There was resistance to the introduction of the Juares in the area of the bulbar urethra. The catheter was successfully introduced inside the bladder. Bladder was irrigated and he had about 100 cc of residual urine and there were a few clots which were all evacuated. The patient was observed in the emergency room. His urine became pink. I irrigated him twice before his discharge and the returns very clear. The patient is being discharged home on the Juares catheter drainage. He will be started on Bactrim DS b.i.d. He will be seen in the office in the next few days. He will need a cystoscopy to determine the cause of the gross hematuria and he will be given a trial of voiding. I gave him the instructions for his followup care and the need to call back if the retention recurs or if he develops fever or increasing pain. [id number]/[facility] #: [id number] ZARINA
== END 2018-01-10 10:30 | disposition home or self-care (01) ==
LOC: ED 04:06
DX: N39.0 Urinary tract infection, site not specified (principal); R31.9 Hematuria, unspecified; R33.9 Retention of urine, unspecified; N35.9 Urethral stricture, unspecified; N20.0 Calculus of kidney; K57.30 Diverticulosis of large intestine without perforation or abscess without bleeding; Z87.442 Personal history of urinary calculi; Z87.891 Personal history of nicotine dependence
CPT/HCPCS: 36415; 51702; 74176; 80053; 81003; 81015; 85025; 85610; 85730; 86140; 87086; 96374; 96375; 99284; A9270-GY; J2270; J2405

== ENCOUNTER 2018-07-05 06:42 | Day surgery (SDC) | payer OTHER ==
--- NOTE | 2018-06-28 20:19 | HP ---
CC: Dr. Vasques; Dr. Maria * ADMITTING HISTORY AND PHYSICAL: DATE OF ADMISSION: 07/05/18 ADMITTING DIAGNOSIS: Left renal calculi. PLANNED PROCEDURE: Left stent insertion and shockwave lithotripsy of left renal calculi. SURGEON: Dr. Cordova. HISTORY OF PRESENT ILLNESS: Charles Plunkett is a 57-year-old gentleman with a history of recurrent bilateral renal calculi. He had last undergone lithotripsy in 2014 for left-sided renal calculi and recent evaluation had revealed increase in size and number of left renal calculi. PAST MEDICAL HISTORY: Significant for: 1. Renal calculi. 2. High cholesterol. 3. History of coronary artery disease. MEDICATIONS ON ADMISSION: 1. Crestor 40 mg daily. 2. Hydrochlorothiazide 25 mg daily. 3. Aspirin 81 mg, which he is stopping prior to the lithotripsy. ALLERGIES: No known drug allergies. REVIEW OF SYSTEMS: He is otherwise in excellent health. There is no history of diabetes mellitus or any other major systemic illness. He is fairly active physically and denies any chest pain or shortness of breath. PHYSICAL EXAMINATION GENERAL: Reveals a pleasant healthy-appearing middle-aged gentleman. VITAL SIGNS: Blood pressure is 126/80, pulse 77 per minute and regular, oxygen saturation 92% on room air. LUNGS: Clear bilaterally. CARDIOVASCULAR: Regular rate and rhythm. S1, S2. ABDOMEN: Soft with mild left flank tenderness. IMPRESSION: A 57-year-old gentleman with multiple large left renal calculi. PLAN: Planned procedure is left stent insertion and shockwave lithotripsy of left renal calculi. [id number]/[facility] #: [id number] [facility]
[~2018-07-05 06:42] MED LIST: Buffered Lidocaine 1% SYRIN* 1 ML/SYRINGE INTRADERM ONE; Dexamethasone IV* 4 MG/ML 1 ML (4 MG) IV SLOW PU ONE; Famotidine IV* 10 MG/ML 2 ML (20 mg) IV ONE; Lactated Ringers 1000 ML Bag* 1,000 ML IV SCH
[2018-07-05] MEDS ORDERED: Famotidine IV* 10 MG/ML 2 ML (20 mg) ONE (07:51)
[2018-07-05] MEDS ORDERED: Buffered Lidocaine 1% SYRIN* 1 ML/SYRINGE ONE (07:52)
[2018-07-05] MEDS ORDERED: cefTRIAXone(*) 2 GM ADDV.VIAL IVPB ONE (07:52)
[2018-07-05] MEDS ORDERED: Dexamethasone IV* 4 MG/ML 1 ML (4 MG) ONE (07:52)
[2018-07-05] MEDS ORDERED: Midazolam* 1 MG/ML 2 ML VIAL (2 MG) ONE (08:44)
[2018-07-05] MEDS ORDERED: fentaNYL* 50 MCG/ML 2 ML VIAL (100 MCG VIAL) ONE (08:44)
[2018-07-05] MEDS ORDERED: OXYTOCIN* 10 UNITS/ML 1 ML VIAL ONE (09:23)
[2018-07-05] MEDS ORDERED: Propofol* 10 MG/ML 20 ML BTL ONE (09:23)
[2018-07-05] MEDS ORDERED: Iohexol 180 (CONTRAST) 10 ML SDV IV ONE (09:36)
[2018-07-05] MEDS ORDERED: Naloxone* 0.4 MG/ML 1 ML VIAL IV PRN (09:59)
[2018-07-05] MEDS ORDERED: DiMENhydriNATE IV* 50 MG/ML VIAL IV PUSH PRN (09:59)
[2018-07-05] MEDS ORDERED: fentaNYL* 50 MCG/ML 2 ML VIAL (100 MCG VIAL) IV PRN (09:59)
[2018-07-05 11:41] VITALS: BP 112/76
--- NOTE | 2018-07-05 20:30 | OP ---
CC: Dr. Vasques * DATE OF OPERATION: 07/05/18 - [facility] DATE OF : 58 SURGEON: Evangelist Cordova MD ANESTHESIOLOGIST: Dr. Schulte. ANESTHESIA: General. PRE-OP DIAGNOSIS: Multiple left renal calculi. POST-OP DIAGNOSES: Multiple left renal calculi. OPERATIVE PROCEDURE: Shockwave lithotripsy of left renal calculi. INDICATIONS: Charles Plunkett is a 57-year-old gentleman with a history of recurrent bilateral renal calculi. He was recently evaluated and noted to have increase in the size and number of previously noted left renal calculi. I had originally planned to place a left stent; but, after discussing it with the patient in the preoperative area, he would like to try and see if he can avoid a stent and see if he can pass the fragments, which I have explained to him there is a risk of obstructing fragments without the stent. The plan now is to do the shockwave lithotripsy without the stent. COMPLICATIONS: None. POSTOPERATIVE CONDITION: Stable. DESCRIPTION OF PROCEDURE: After induction of general anesthesia, the patient was placed on the lithotripsy table in supine position. There were clusters of stones in the upper, mid and lower pole of the left kidney. These were sequentially targeted with shock waves at 60 shocks per minute. After the initial 300 shocks, there was a pause in lithotripsy for several minutes in an effort to minimize any potential trauma to the kidney. Lithotripsy was then resumed and a total of 2400 shocks were distributed between the 3 clusters of calculi. The patient tolerated the procedure satisfactorily and was transferred back to the recovery area in stable condition. My plan is to wait a few months and obtain an imaging study to check the clearance of the calculi from the kidney. [id number]/[facility] #: [id number] MTDD
== END 2018-07-05 12:02 | disposition home or self-care (01) ==
LOC: OR 06:42
PROVIDERS: ATTEND Urology
DX: N20.0 Calculus of kidney (principal); I25.10 Atherosclerotic heart disease of native coronary artery without angina pectoris; E78.00 Pure hypercholesterolemia, unspecified; I25.2 Old myocardial infarction; Z95.5 Presence of coronary angioplasty implant and graft; Z87.891 Personal history of nicotine dependence
CPT/HCPCS: 74018; J0696; J1100; J2250; J2590; J2704; J3010

== ENCOUNTER 2018-11-04 09:19 | Emergency (ER) | payer OTHER ==
[2018-11-04 09:29] VITALS: BP 120/83
--- NOTE | 2018-11-04 10:06 | UC ---
Abdominal Pain Male HPI - HPI Summary HPI Summary: CHIEF COMPLAINT and HPI: This is a 58-year-old male who had an episode of nausea and diarrhea 2 weeks ago. This appeared to resolve, but over the last week she has had cramping in the lower abdomen and diarrhea today. 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 He has had decreased bowel movements over the past 2 weeks. VITAL SIGNS & SaO2 REVIEWED. Within normal limits unless noted here. NURSES NOTE REVIEWED. "one week of cramps, previously 2 weeks ago went throug gastro illness with nausea and diarrhea " - History of Current Complaint Chief Complaint: UCAbdominalPain Stated Complaint: ABD PAIN Time Seen by Provider: 11/04/18 10:05 Pain Intensity: 0 - Allergies/Home Medications Allergies/Adverse Reactions: Allergies Allergy/AdvReac Type Severity Reaction Status Date / Time No Known Allergies Allergy Verified 11/04/18 09:29 PMH/Surg Hx/FS Hx/Imm Hx - Additional Past Medical History Additional PMH: PAST MEDICAL HISTORY- UT with stent; kidney stones, smoker. CHRONIC and RECURRENT HEALTH PROBLEM LIST REVIEWED. Information relevant to present complaint: on warfarin. VISIT HISTORY REVIEWED. MEDICATIONS & ALLERGIES REVIEWED. HYPERTENSION STATUS: on HCTZ FAMILY HISTORY: Positive for: cardiovascular disease Patient denies family history of: stroke, diabetes, cancer. SOCIAL HISTORY: smoker, lives with family, and works as a home delivery driver . - Surgical History Surgical History: Yes Surgery Procedure, Year, and Place: KIDNEY STONES X SEVERAL PER PATIENT, [facility]. RIGHT WRIST, [facility]. VASECTOMY, [facility] - Family History Known Family History: Positive: Cardiac Disease, Hypertension Negative: Diabetes - Social History Alcohol Use: None Substance Use Type: None Smoking Status (MU): Former Smoker Type: Cigarettes Amount Used/How Often: 1 PPD X 5-6 YEARS Have You Smoked in the Last Year: No When Did the Patient Quit Smoking/Using Tobacco: 30 YEARS AGO - Immunization History Most Recent Influenza Vaccination: never Most Recent Tetanus Shot: within last 10 years Most Recent Pneumonia Vaccination: never Review of Systems All Other Systems Reviewed And Are Negative: Yes Constitutional: Positive: Negative Skin: Positive: Negative Eyes: Positive: Negative ENT: Positive: Negative Respiratory: Positive: Negative. Negative: Shortness Of Breath Cardiovascular: Positive: Negative. Negative: Palpitations Gastrointestinal: Positive: Abdominal Pain - cramping pain for 7 days; excess jacklyn, Nausea. Negative: Diarrhea Is Patient Immunocompromised?: No Physical Exam - Summary Physical Exam Summary: Appearance: The patient is well-appearing, is in no pain or distress, and is well-nourished. Eyes: Conjunctiva are clear. Pupils are equal and reactive to light and accommodation. Extra ocular muscle movement is intact. ENT: The hearing is grossly normal, the pharynx is normal, and the TMs are normal. There is no muffled or hoarse voice. No stridor. Neck: The neck is supple and there is no lymphadenopathy. Respiratory: The chest is non-tender to palpation and without crepitus. The lungs are clear, there are normal breath sounds, and there is no respiratory distress. No wheezes, rales or rhonchi. Cardiovascular: Heart sounds reveal a regular rate and rhythm. There are no clicks, rubs or murmurs. There are no carotid bruits or thrills. Circulation is grossly intact. Abdomen: The abdomen is soft. There is cramping discomfort over the bladder. Bowel sounds are active. There is no organomegaly. No point tenderness at McBurneys point. No CVA tenderness. Musculoskeletal: Strength is intact. The patient moves all extremities. Neurological: The patient is alert. Motor and sensory are examination grossly intact. Speech is normal. Psychological: The patient displays age appropriate behavior, and is conversant. GCS=15. Skin: Negative for rashes. Triage Information Reviewed: Yes Vital Signs: Initial Vital Signs Temp 97.8 F 11/04/18 09:24 Pulse 86 11/04/18 09:24 Resp 18 11/04/18 09:24 BP 120/83 11/04/18 09:24 Pulse Ox 98 11/04/18 09:24 Vital Signs Reviewed: Yes Abd Pain Male Course/Dx - Course Course Of Treatment: MEDICAL DECISION MAKING and PLAN: This is a 58-year-old male who had an episode of nausea and diarrhea 2 weeks ago. This appeared to resolve, but over the last week she has had cramping in the lower abdomen and diarrhea today. 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 He has had decreased bowel movements over the past 2 weeks. Past medical history is significant for an UT, cardiac catheter, and kidney stones. He has no complaints of urinary discomfort or kidney pain. The patient is a smoker. Physical examination shows a comfortable white male who can walk without abdominal discomfort. There is slight tenderness in the bilateral lower abdomen, but no point tenderness consistent with left lower quadrant diverticulitis or right lower quadrant appendicitis.Given the patient' s x ray, my initial diagnosis is constipation related to the diarrhea, although he may have a bowel infection such as giardia. BOWEL: There is a nonobstructive bowel gas pattern. There is a large amount of stool within the colon. CALCULI: There are multiple bilateral renal calculi, measuring up to 0.9 cm on the left and 0.5 cm on the right BONES AND SOFT TISSUES: Degenerative changes are noted. OTHER FINDINGS: The lung bases are clear. There is no subphrenic gas. IMPRESSION: 1. NONOBSTRUCTIVE BOWEL GAS PATTERN. 2. BILATERAL NEPHROLITHIASIS. 3. NO SUBPHRENIC GAS. Patient has had decreased bowel movements over the past 2 weeks because of his work as a retail business analyst. He denies blood in his stool. Discussed the situation with him. He be constipation with soft stools complicating constipation. He may have a gastrointestinal infection. He looks well-hydrated main problem is that he has to continue to work. He knows that he can take [id number] Imodium for diarrhea if necessary. He knows to simplify his diet and to add fiber and fluids to clear out his bowel. He will give us a stool sample for Giardia, Salmonella, Shigella, Campylobacter, etc.I explained all this to the patient. He will stay well hydrated, increase fiber and bring back a stool sample. He knows to go to the ED for increased or new pain. MEDICATIONS REVIEWED. HYPERTENSION STATUS REVIEWED WITH PATIENT IF blood pressure is above 120/80. - Differential Dx/Clinical Impression Differential Diagnosis/HQI/PQRI: Constipation, Ureteral Stone, Urinary Tract Infection, Other - giardia or other bowel infection Provider Diagnosis: Constipation Discharge - Sign-Out/Discharge Documenting (check all that apply): Patient Departure All imaging exams completed and their final reports reviewed: Yes - Discharge Plan Condition: Stable Disposition: HOME Patient Education Materials: Constipation (DC), Giardiasis (ED) Referrals: Rafael Vasques MD [Primary Care Provider] - Additional Instructions: WE DISCUSSED: PLEASE SEEK CARE AT THE EMERGENCY DEPARTMENT IF SYMPTOMS WORSEN OR IF NEW SYMPTOMS DEVELOP. FOLLOW UP WITH YOUR PRIMARY CARE PHYSICIAN IF CONDITION CONTINUES BEYOND 3 DAYS WITHOUT IMPROVEMENT. YOUR DIAGNOSIS IS: abdominal discomfort with intermittent diarrhea; excess stool in bowel YOUR PRESCRIPTION RECOMMENDATION IS: increase fluids and fiber; bring in a stool sample for testing. Stay well hydrated. OTHER INSTRUCTIONS: Go to ED for any increased pain, temperature, inability to stay hydrated, blood in stool. Bring sample back here for evaluation - Billing Disposition and Condition Condition: STABLE Disposition: Home
== END 2018-11-04 12:05 | disposition home or self-care (01) ==
LOC: UCEAST 09:19
DX: K59.00 Constipation, unspecified (principal); N20.0 Calculus of kidney; Z87.442 Personal history of urinary calculi; I25.2 Old myocardial infarction; Z95.5 Presence of coronary angioplasty implant and graft; Z79.01 Long term (current) use of anticoagulants; Z87.891 Personal history of nicotine dependence
CPT/HCPCS: 74019; 81003; 99211; G0463

== ENCOUNTER 2018-12-03 08:09 | Day surgery (SDC) | payer OTHER ==
--- NOTE | 2018-12-01 17:31 | HP ---
CC: Dr. Vasques; Dr. Maria * ADMITTING HISTORY AND PHYSICAL: DATE OF ADMISSION: 12/03/18 ADMITTING DIAGNOSIS: Left ureteral calculi. PLANNED PROCEDURE: Left ureteroscopy, possible laser and stent insertion. SURGEON: Dr. Cordova. HISTORY OF PRESENT ILLNESS: Charles Plunkett is a 58-year-old gentleman with a history of multiple recurrent bilateral renal and ureteral calculi. He was recently evaluated and noted to have multiple calculi in the left distal ureter and when seen in followup, it looked like the number of calculi were reduced, but there were still some persistent calculi in the left distal ureter. He was given the option of trying to wait longer to see if these can pass, but would like to have them removed and is now being brought in for left ureteroscopy, possible laser and stent insertion. PAST MEDICAL HISTORY: Significant for: 1. High cholesterol. 2. Recurrent bilateral renal calculi. 3. History of coronary artery disease. MEDICATIONS: 1. Hydrochlorothiazide 25 mg daily. 2. Aspirin 81 mg a day. 3. Crestor 40 mg a day. ALLERGIES: No known drug allergies. SMOKING HISTORY: He is a nonsmoker. FAMILY HISTORY: Negative for stone. REVIEW OF SYSTEMS: He is otherwise in excellent health and is fairly active physically. There is no history of diabetes mellitus. He denies any chest pain or shortness of breath. PHYSICAL EXAMINATION GENERAL: Reveals a pleasant middle-aged gentleman. VITAL SIGNS: Blood pressure is 120/80, pulse 67 per minute and regular, oxygen saturation 98% on room air, temperature 96.9. LUNGS: Clear bilaterally. CARDIOVASCULAR EXAM: Regular rate and rhythm. S1, S2. ABDOMEN: Soft with mild left flank tenderness. IMPRESSION: A 58-year-old gentleman with multiple left ureteral calculi (in addition to left renal calculi). PLAN: Planned procedure is left ureteroscopy, possible laser and stent insertion. [id number]/[facility] #: [id number] [facility]
[2018-12-03] MEDS ORDERED: cefTRIAXone(*) 2 GM ADDV.VIAL IVPB ONE (08:20)
[2018-12-03] MEDS ORDERED: Dexamethasone IV* 4 MG/ML 1 ML (4 MG) ONE (08:20)
[2018-12-03] MEDS ORDERED: Famotidine IV* 10 MG/ML 2 ML (20 mg) ONE (08:20)
[2018-12-03] MEDS ORDERED: Buffered Lidocaine 1% SYRIN* 1 ML/SYRINGE INTRADERM ONE (08:20)
[2018-12-03] MEDS ORDERED: fentaNYL* 50 MCG/ML 5 ML VIAL (250 MCG VIAL) ONE (10:22)
[2018-12-03] MEDS ORDERED: Midazolam* 1 MG/ML 5 ML VIAL (5 MG) ONE (10:22)
[2018-12-03] MEDS ORDERED: Ondansetron INJ* 2 MG/ML VIAL ONE (10:22)
[2018-12-03] MEDS ORDERED: Lidocaine 2% PF * 5 ML VIAL ONE (10:22)
[2018-12-03] MEDS ORDERED: Propofol* 10 MG/ML 20 ML BTL ONE (10:22)
[2018-12-03] MEDS ORDERED: Ondansetron INJ* 2 MG/ML VIAL IV PRN (10:57)
[2018-12-03] MEDS ORDERED: oxyCODONE/Acetamin 5/325 MG* TAB PO PRN (10:57)
[2018-12-03] MEDS ORDERED: DiMENhydriNATE IV* 50 MG/ML VIAL IV PUSH PRN (10:57)
[2018-12-03] MEDS ORDERED: Naloxone* 0.4 MG/ML 1 ML VIAL IV PRN (10:57)
[2018-12-03] MEDS ORDERED: fentaNYL* 50 MCG/ML 2 ML VIAL (100 MCG VIAL) IV PRN (10:57)
[2018-12-03] MEDS ORDERED: Tamsulosin CAP* 0.4 MG ONE (11:49)
[2018-12-03 13:01] VITALS: BP 125/89
--- NOTE | 2018-12-03 14:09 | OP ---
CC: Dr. Vasques * DATE OF OPERATION: 12/03/18 - [facility] DATE OF : 58 SURGEON: Evangelist Cordova MD ANESTHESIOLOGIST: Dr. Brewer. ANESTHESIA: General. PRE-OP DIAGNOSES: 1. Left hydronephrosis. 2. Calculi, left ureter. 3. Left renal calculi. POST-OP DIAGNOSES: 1. Left hydronephrosis. 2. Calculi, left ureter. 3. Left renal calculi. OPERATIVE PROCEDURE: Cystoscopy, left retrograde pyelogram, left ureteroscopy and laser lithotripsy and removal of calculus fragments, left pyeloscopy and removal of renal calculus and left stent insertion. COMPLICATIONS: None. STENT USED: 6-Gibraltarian stent, left ureter. OPERATIVE FINDINGS: 1. Two fairly large left distal ureteral calculi. 2. Left renal calculi. INDICATIONS: Charles Plunkett is a 58-year-old gentleman with a history of recurrent renal and ureteral calculi, who was recently evaluated for persistent left ureteral calculi. DESCRIPTION OF PROCEDURE: After induction of general anesthesia, the patient was placed in dorsal lithotomy position. Sequential compression devices were in place and functioning. Initial cystoscopy revealed a normal appearing urethra and a moderately large prostate. The bladder was examined and appeared unremarkable. A guide wire was introduced into the left ureter. Retrograde pyelogram revealed fullness of the left collecting system. A 6-Gibraltarian semirigid ureteroscope was advanced into the left ureter, a few centimeters above the ureterovesical junction, two calculi were noted each measuring about 8 to 9 mm in size. Using a 550 micron holmium laser, these were successfully broken up into multiple small fragments, all of which were removed and sent for analysis. The ureteroscope was carefully advanced into the proximal ureter which was dilated and then subsequently into the renal pelvis. Pyeloscopy was performed. There was approximately 5 to 6 mm calculus noted in the dependant part of the renal pelvis, which was also engaged using a 3-prong ramu and removed. The patient does have some additional calculi in the lower pole, but I did not attempt to remove them at the present time. A 6- Gibraltarian stent was introduced and positioned under the fluoroscopy with good proximal and distal positioning obtained. The bladder was emptied. The patient tolerated the procedure satisfactorily and was transferred back to the recovery area in stable condition. [id number]/[facility] #: [id number] ZARINA
== END 2018-12-03 13:05 | disposition home or self-care (01) ==
LOC: OR 08:09
PROVIDERS: ATTEND Urology
DX: N20.0 Calculus of kidney (principal); N20.1 Calculus of ureter; N13.30 Unspecified hydronephrosis; E78.00 Pure hypercholesterolemia, unspecified; Z86.79 Personal history of other diseases of the circulatory system; Z79.82 Long term (current) use of aspirin
CPT/HCPCS: 74420; C1876; J0696; J1100; J2250; J2405; J2704; J3010

== ENCOUNTER 2020-07-24 14:59 | Observation (INO) ==
[2020-07-24 15:28] LABS: ABS Basophils 0.1 10^3/ul (0-0.2); ABS Eosinophils 0.1 10^3/ul (0-0.6); ABS Lymphocytes 1.8 10^3/ul (1.0-4.8); ABS Monocytes 0.4 10^3/ul (0-0.8); ABS Neutrophils 3.2 10^3/ul (1.5-7.7); Eosinophil % 1.3 %; Hematocrit 42 % (42-52); Hemoglobin 14.5 g/dL (14.0-18.0); Lymphocyte % 32.8 %; Mean Corpuscular HGB Conc 34 g/dL (31-36); Mean Corpuscular Hemoglobin 31 pg (27-31); Mean Corpuscular Volume 90 fL (80-94); Mean Platelet Volume 8.7 fL (7.4-10.4); Platelet Count 200 10^3/uL (150-450); Red Blood Count 4.71 10^6 /uL (4.18-5.48); Red Cell Distribution Width 14 % (10-15); White Blood Count 5.5 10^3/uL (3.5-10.8)
[2020-07-24 15:33] LABS: INR 1.12 (0.82-1.09)
[2020-07-24 15:49] LABS: Albumin 4.2 g/dL (3.2-5.2); Albumin/Globulin Ratio 1.7 (1-3); BUN/Creatinine Ratio 16.4 (8-20); Calcium 8.8 mg/dL (8.6-10.3); EGFR African American 82.6 (>60); EGFR Non-African American 68.3 (>60); Globulin 2.5 g/dL (2-4); Potassium 3.3 mmol/L (3.5-5.0); Total Bilirubin 0.6 mg/dL (0.2-1.0); Total Protein 6.7 g/dL (6.4-8.9)
[2020-07-24] MEDS ORDERED: Nitro 2% OINT (Nitroglycerin) 1 INCH/PAK TOPICAL ONE (18:27)
[2020-07-24] MEDS ORDERED: Enoxaparin 40 MG/0.4 ML SYR SUBCUT SCH (21:00)
[2020-07-24] MEDS ORDERED: Potassium Chlor 20 meq TAB.ER PO ONE (22:00)
[2020-07-25 08:10] LABS: BUN/Creatinine Ratio 23.1 (8-20); Calcium 8.6 mg/dL (8.6-10.3); EGFR African American 102.8 (>60); HDL Cholesterol 47.1 mg/dL; Potassium 3.5 mmol/L (3.5-5.0)
[2020-07-25] MEDS ORDERED: Aspirin EC 81 mg TAB.EC (enteric coated) PO SCH (09:00)
[2020-07-25 17:04] VITALS: BP 129/79
== END 2020-07-25 16:51 | disposition home or self-care (01) ==
LOC: MEDTELE 14:59 → ED 14:59 → MEDTELE 21:00
PROVIDERS: ADMIT Internal Medicine; ATTEND Hospitalist

== ENCOUNTER 2024-04-24 07:36 | Observation (INO) ==
[2024-04-24 08:07] LABS: ABS Basophils 0.1 10^3/uL (0.0-0.1); ABS Eosinophils 0.1 10^3/uL (0.0-0.5); ABS Lymphocytes 1.7 10^3/uL (1.0-4.8); ABS Monocytes 0.5 10^3/uL (0.0-1.1); Eosinophil % 2.5 %; Hematocrit 41.8 % (38-53); Hemoglobin 14.2 g/dL (13.2-16.3); Mean Corpuscular Hemoglobin 30.1 pg (27-33); Mean Corpuscular Volume 88.5 fL (80-97); Mean Platelet Volume 8.5 fL (7.5-11.2); Platelet Count 188 10^3/uL (150-450); Red Blood Count 4.72 10^6/uL (4.06-5.63); Red Cell Distribution Width 14.7 % (12-17); White Blood Count 5.3 10^3/uL (3.6-10.2)
[2024-04-24 08:39] LABS: INR 1.03 (0.85-1.14)
[2024-04-24 09:14] LABS: Albumin 4.2 g/dL (3.2-5.2); Albumin/Globulin Ratio 1.6 (1-3); Calcium 9.1 mg/dL (8.6-10.3); Creatinine, Serum 0.91 mg/dL (0.67-1.17); Globulin 2.6 g/dL (2-4); Total Bilirubin 0.6 mg/dL (0.2-1.0); Total Protein 6.8 g/dL (6.4-8.9); eGFR CKD-EPI 94.1 (>60)
[2024-04-24 09:29] LABS: High Sensitivity Troponin 1 Hr < 3 pg/mL (<20)
[2024-04-24] MEDS ORDERED: Ondansetron 4 mg VIAL 2 MG/ML 2 ml VIAL IV PRN (12:10)
[2024-04-24] MEDS ORDERED: Senna TAB 8.6 mg TAB PO PRN (12:10)
[2024-04-24] MEDS ORDERED: Polyethylene Glycol 3350 17 GM PACKET PO PRN (12:10)
[2024-04-24] MEDS ORDERED: Sulfur Hexaflouride MICROSPHR 25 MG VIAL IV PRN (13:38)
[2024-04-24] MEDS: Enoxaparin 40 MG/0.4 ML SYR SUBCUT SCH (17:19)
[2024-04-25] MEDS ORDERED: tadalafiL 5 MG TABLET (NF) PO SCH (09:00)
[2024-04-25] MEDS: Aspirin EC 81 mg TAB.EC (enteric coated) PO SCH (09:49)
[2024-04-25 09:51] VITALS: BP 124/84
== END 2024-04-25 11:56 | disposition home or self-care (01) ==
LOC: ED 07:36 → EDHOLD 07:36 → SUATTDRO 12:10 → MED 13:13
PROVIDERS: ADMIT Internal Medicine; ATTEND Student in an Organized Health Care Education/Training Program